=== PATIENT | female | born 1980 | race African-American/Black ===

== ENCOUNTER 2016-06-23 04:49 | Emergency (ER) | payer OTHER ==
[2016-06-23 05:48] LABS: APPEARANCE,URINE SLIGHTLY-CLOUDY; BILIRUBIN,URINE NEGATIVE (NEGATIVE); GLUCOSE, URINE NEGATIVE (NEGATIVE); KETONES,URINE TRACE mg/dL (NEGATIVE); LEUKOCYTE ESTERASE,URINE MODERATE (NEGATIVE); NITRITE,URINE NEGATIVE (NEGATIVE); PROTEIN,URINE 30 mg/dL (NEGATIVE); URINE SPECIFIC GRAVITY 1.026
--- NOTE | 2016-06-23 08:00 | ER Document Report ---
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 No fever. No flank pain. No nausea or vomiting. Associated Symptoms: None Exacerbated by: Denies Relieved by: Denies Similar symptoms previously: No Recently seen / treated by doctor: No - ROS ROS below otherwise negative: Yes Systems Reviewed and Negative: Yes All other systems reviewed and negative - REPRODUCTIVE LMP: hysterectomy Reproductive: DENIES: : - DERM Skin Color: Normal, [place] Past Medical History - General Information source: Patient - Social History Smoking Status: Current Every Day Smoker Chew tobacco use (# tins/day): No Frequency of alcohol use: None Drug Abuse: None Lives with: Family Family History: Reviewed & Not Pertinent - Past Medical History Cardiac Medical History: Reports: Hx Hypertension Renal/ Medical History: Denies: Hx Peritoneal Dialysis Past Surgical History: Reports: Hx Hysterectomy Vertical Provider Document - CONSTITUTIONAL Agree With Documented VS: Yes Exam Limitations: No Limitations - INFECTION CONTROL TRAVEL OUTSIDE OF THE [place] IN LAST 30 DAYS: No - HEENT HEENT: Conjuctival Injection, Normocephalic, PERRLA Notes: No floor seen uptake, no foreign body - NECK Neck: Supple. negative: Lymphadenopathy-Left, Lymphadenopathy-Right - RESPIRATORY Respiratory: Breath Sounds Normal, No Respiratory Distress O2 Sat by Pulse Oximetry: 98 - CARDIOVASCULAR Cardiovascular: Regular Rate, Regular Rhythm - GI/ABDOMEN Gastrointestinal: Abdomen Soft, Abdomen Non-Tender, No Organomegaly - REPRODUCTIVE Notes: There is no rash or mons pubis - BACK Back: negative: CVA Tenderness-Right, CVA Tenderness-Left - MUSCULOSKELETAL/EXTREMETIES Musculoskeletal/Extremeties: CAMILLA ACEVES - NEURO Level of Consciousness: Awake, Alert - DERM Integumentary: Warm, Dry, No Rash Course - Vital Signs Vital signs: Temp Pulse Resp BP Pulse Ox 97.8 F 77 16 146/107 H 98 06/23/16 05:02 06/23/16 05:02 06/23/16 05:02 06/23/16 05:02 06/23/16 05:02 - Laboratory Laboratory results interpreted by me: 06/23/16 05:15 Urine Protein 30 H Urine Ketones TRACE H Urine Blood SMALL H Urine Urobilinogen 4.0 H Ur Leukocyte Esterase MODERATE H Discharge - Discharge Clinical Impression: Urinary tract infection Qualifiers: Urinary tract infection type: acute cystitis Hematuria presence: without hematuria Qualified Code(s): N30.00 - Acute cystitis without hematuria Conjunctivitis, left eye Qualifiers: Conjunctivitis type: acute Acute conjunctivitis type: unspecified Qualified Code(s): H10.32 - Unspecified acute conjunctivitis, left eye Swelling of eyelid Qualifiers: Laterality: left Qualified Code(s): H02.846 - Edema of left eye, unspecified eyelid Condition: Good Disposition: HOME, SELF-CARE Instructions: Urinary Tract Infection ([facility]), Nitrofurantoin ([facility]), Conjunctivitis ([facility]) Additional Instructions: Urine culture is pending Return if her symptoms worsen See the public relations intern if eye symptoms persists Stop shaving pubic hair Please complete the patient satisfaction survey if you get one, and return it.. If you do not receive a survey, then you can go to the [facility] website, [email or web address] and place your comments about your very good care. Thank you very much. It was a pleasure being your medical provider today. Prescriptions: Nitrofurantoin/Nitrofuran Mac [Macrobid 100 mg Capsule] 100 mg PO BID #14 capsule Sulfacetamide Sodium [Bleph-10] 2 drop OS Q4H #5 ml Forms: Return to Work Referrals: LEMUEL SOLOMON MD [ACTIVE STAFF] - Follow up as needed
[2016-06-23 09:26] VITALS: BP 140/82
== END 2016-06-23 09:26 | disposition home or self-care (01) ==
LOC: ER 04:49
DX: N30.00 Acute cystitis without hematuria (principal); H10.32 Unspecified acute conjunctivitis, left eye; H02.846 Edema of left eye, unspecified eyelid; R22.0 Localized swelling, mass and lump, head; F17.200 Nicotine dependence, unspecified, uncomplicated
CPT/HCPCS: 81001; 87086; 87088; 87186; 99283

== ENCOUNTER 2016-12-04 02:02 | Emergency (ER) | payer OTHER ==
[2016-12-04] MEDS ORDERED: IPRATROPIUM/ALBUTEROL 0.5-2.5 MG/3 ML AMPUL NEB ONE (02:31)
[2016-12-04] MEDS ORDERED: PREDNISONE 20 MG TABLET PO ONE (02:31)
--- NOTE | 2016-12-04 02:42 | ER Document Report ---
ED General - General Chief Complaint: MALAISE Stated Complaint: FEELING SICK FOR A WEEK,HEADACHE,EARS HURT Time Seen by Provider: 12/04/16 02:21 Notes: Patient is a 36-year-old female that comes emergency department for chief complaint of cold symptoms for 1 week, she states she got sick from her 2-year- old friend, she states that she has had worsening pressure in her sinuses, drainage from her nose, and she has started wheezing. She has occasional cough. She denies fever. She smokes, states she hasn't been able to this week. She also reports ear pain bilaterally. She denies abdominal pain, chest pain. She has had a hysterectomy. She denies any daily medications. TRAVEL OUTSIDE OF THE [place] IN LAST 30 DAYS: No - Related Data Allergies/Adverse Reactions: shellfish derived Allergy (Verified 06/23/16 05:04) Past Medical History - General Information source: Patient - Social History Smoking Status: Current Every Day Smoker Smoking Education Provided: Yes - < 3min Frequency of alcohol use: None Drug Abuse: None Lives with: Family Family History: Reviewed & Not Pertinent Patient has suicidal ideation: No Patient has homicidal ideation: No - Past Medical History Cardiac Medical History: Reports: Hx Hypertension Renal/ Medical History: Denies: Hx Peritoneal Dialysis Past Surgical History: Reports: Hx Hysterectomy Review of Systems - Review of Systems Constitutional: No symptoms reported EENT: See HPI Cardiovascular: No symptoms reported Respiratory: See HPI Gastrointestinal: No symptoms reported Genitourinary: No symptoms reported Female Genitourinary: No symptoms reported Musculoskeletal: No symptoms reported Skin: No symptoms reported Hematologic/Lymphatic: No symptoms reported Neurological/Psychological: No symptoms reported Physical Exam - Vital signs Vitals: Temp Pulse BP Pulse Ox 97.8 F 103 H 130/92 H 98 12/04/16 02:05 12/04/16 02:05 12/04/16 02:05 12/04/16 02:05 Interpretation: Normal - General General appearance: Appears well, Alert In distress: None - HEENT Head: Normocephalic, Atraumatic Eyes: Normal Conjunctiva: Normal Eyelashes: Normal Pupils: PERRL Ears: Normal External canal: Normal Tympanic membrane: Normal Sinus: Tenderness - maxillary sinus tenderness, slightly worse on the right Mouth/Lips: Normal Mucous membranes: Normal Pharynx: Erythema - mild erythema. No: Tonsillar hypertrophy Neck: Normal. No: Anterior cervical chain, Posterior cervical chain - Respiratory Respiratory status: No respiratory distress. No: Labored, Tachypnea Chest status: Nontender Breath sounds: Wheezing - Expiratory wheezes heard in both lungs and all lung dixon, no rhonchi, no rales. No: Decreased air movement Chest palpation: Normal - Cardiovascular Rhythm: Regular. No: Tachycardia Heart sounds: Normal auscultation, S1 appreciated, S2 appreciated Murmur: No - Abdominal Inspection: Normal Distension: No distension Bowel sounds: Normal Tenderness: Nontender. No: Tender Organomegaly: No organomegaly - Back Back: Normal, Nontender - Extremities General upper extremity: Normal inspection, Nontender, Normal color, Normal ROM , Normal temperature General lower extremity: Normal inspection, Nontender, Normal color, Normal ROM , Normal temperature, Normal weight bearing. No: Shahbaz's sign - Neurological Neuro grossly intact: Yes Cognition: Normal Orientation: AAOx4 [place] Coma Scale Eye Opening: Spontaneous [place] Coma Scale Verbal: Oriented [place] Coma Scale Motor: Obeys Commands Nicola Coma Scale Total: 15 Speech: Normal Motor strength normal: LUE, RUE, LLE, RLE Sensory: Normal - Psychological Associated symptoms: Normal affect, Normal mood - Skin Skin Temperature: Warm Skin Moisture: Dry Skin Color: Normal Course - Re-evaluation Re-evalutation: Patient with exam suggestive of sinus infection and patient also has expiratory wheezes on exam. After a single DuoNeb treatments resolved, patient was given prednisone. Very low clinical suspicion of pneumonia, no fever, no productive cough, no tachypnea. Discussed smoking cessation with patient, she states that she has Aleksandr stopped for a few days, she has quit before, she understands the importance of quitting now. Treating with amoxicillin, prednisone, inhaler, discussed primary care follow-up, discussed return precautions, patient states understanding and agreement. - Vital Signs Vital signs: Temp Pulse Resp BP Pulse Ox 98.4 F 98 18 130/83 H 99 12/04/16 03:50 12/04/16 03:50 12/04/16 03:50 12/04/16 03:50 12/04/16 03:50 Discharge - Discharge Clinical Impression: Cough, Wheezing Sinusitis Qualifiers: Sinusitis location: maxillary Chronicity: acute Recurrence: non-recurrent Qualified Code(s): J01.00 - Acute maxillary sinusitis, unspecified Condition: Stable Disposition: HOME, SELF-CARE Additional Instructions: Examination is consistent with first a virus and now a sinus infection with upper respiratory symptoms and wheezing. Take the amoxicillin antibiotic as prescribed to completion. Take the prednisone as prescribed. Consider Sudafed or similar decongestant, consider nasal sprays such as Flonase or Nasacort. Stop smoking. Follow-up with primary care for additional management. Return to the emergency department for any concerning symptoms including spiking fever, difficulty breathing, or any other concerning symptoms. Prescriptions: Albuterol Sulfate [Proair HFA Inhalation Aerosol 8.5 gm MDI] 2 puff IH Q4H PRN # 1 mdi PRN Reason: Amoxicillin Trihydrate [Amoxil 875 mg Tablet] 1 tab PO BID #20 tablet Prednisone [Deltasone 10 mg Tablet] 10 mg PO ASDIR PRN #21 tablet PRN Reason: Forms: Return to Work
[2016-12-04] MEDS ORDERED: ALBUTEROL SULFATE HFA (90 MCG/PUFF) 8 GM MDI (1 MDI/ER DISP) IH ONE (03:20)
[2016-12-04 04:05] VITALS: BP 130/83
== END 2016-12-04 03:50 | disposition home or self-care (01) ==
LOC: ER 02:02
DX: J01.00 Acute maxillary sinusitis, unspecified (principal); R05 Cough; R06.2 Wheezing; H92.02 Otalgia, left ear; I10 Essential (primary) hypertension; F17.200 Nicotine dependence, unspecified, uncomplicated; Z71.6 Tobacco abuse counseling; Z91.013 Allergy to seafood
CPT/HCPCS: 94640; 99283; J7512; J3490; J7620

== ENCOUNTER 2016-12-18 12:05 | Emergency (ER) | payer OTHER ==
[2016-12-18 12:10] VITALS: BP 126/92
--- NOTE | 2016-12-18 13:26 | ER Document Report ---
HPI - HPI Pain Level: Denies Notes: Patient is a 36-year-old female who presents the ED complaining of a rash 1 week. Patient states that the rash started around her waistline and has started to spread towards her chest and there is a few spots on her right arm. Patient states that the rash is very itchy and is worse at nighttime. She denies any new chemicals, exposure new soaps or detergents, denies insect bites. Denies any recent travel, illness. She has not noticed any redness or purulent discharge. Denies any red streaks. Patient denies any drug allergies or significant past medical history otherwise. Denies any headache, fever, neck pain, URI, sore throat, chest pain, palpitations, syncope, cough, shortness of breath, wheeze, dyspnea, abdominal pain, nausea/vomiting/diarrhea. - ROS Notes: REVIEW OF SYSTEMS: CONSTITUTIONAL : Denies fever, chills, or sweats. Denies recent illness. EENT: Denies eye, ear, throat, or mouth pain or symptoms. Denies nasal or sinus congestion or discharge. Denies throat, tongue, or mouth swelling or difficulty swallowing. CARDIOVASCULAR: Denies chest pain. Denies palpitations or racing or irregular heart beat. Denies ankle edema. RESPIRATORY: Denies cough, cold, or chest congestion. Denies shortness of breath, difficulty breathing, or wheezing. GASTROINTESTINAL: Denies abdominal pain or distention. Denies nausea, vomiting , or diarrhea. Denies blood in vomitus, stools, or per rectum. Denies black, tarry stools. Denies constipation. GENITOURINARY: Denies difficulty urinating, painful urination, burning, frequency, blood in urine, or discharge. MUSCULOSKELETAL: Denies back or neck pain or stiffness. Denies joint pain or swelling. SKIN: see hpi NEUROLOGICAL: Denies confusion or altered mental status. Denies passing out or loss of consciousness. Denies dizziness or lightheadedness. Denies headache. Denies weakness or paralysis or loss of use of either side. Denies problems with gait or speech. Denies sensory loss, numbness, or tingling. ALL OTHER SYSTEMS REVIEWED AND NEGATIVE. Dictation was performed using [employer] voice recognition software - REPRODUCTIVE Reproductive: DENIES: : Past Medical History - Social History Smoking Status: Current Some Day Smoker Chew tobacco use (# tins/day): No Frequency of alcohol use: None Drug Abuse: None Family History: Reviewed & Not Pertinent - Past Medical History Cardiac Medical History: Reports: Hx Hypertension Renal/ Medical History: Denies: Hx Peritoneal Dialysis Past Surgical History: Reports: Hx Hysterectomy Vertical Provider Document - CONSTITUTIONAL Agree With Documented VS: Yes Notes: PHYSICAL EXAMINATION: GENERAL: Well-appearing, well-nourished and in no acute distress. LUNGS: Breath sounds clear to auscultation bilaterally and equal. No wheezes rales or rhonchi. HEART: Regular rate and rhythm without murmurs, rubs, gallops. ABDOMEN: Soft, nontender, nondistended abdomen. No guarding, no rebound. No masses appreciated. Normal bowel sounds present. No CVA tenderness bilaterally. Musculoskeletal: FROM to passive/active. Strength 5+/5. Extremities: No cyanosis, clubbing, or edema b/l. Peripheral pulses 2+. Capillary refill less than 3 seconds. NEUROLOGICAL: Cranial nerves grossly intact. Normal speech, normal gait. Normal sensory, motor exams PSYCH: Normal mood, normal affect. SKIN: small maculopapular lesions with borrows noted on a few. Non-tender. No erythema, abscess, streaks, or discharge. - INFECTION CONTROL TRAVEL OUTSIDE OF THE [place] IN LAST 30 DAYS: No - RESPIRATORY O2 Sat by Pulse Oximetry: 99 Course - Re-evaluation Re-evalutation: 12/18/16 13:25 Patient is an afebrile, well-hydrated, 36-year-old female who presents the ED with suspected scabies based on H&P today. Vitals are stable. PE otherwise unremarkable. I will send her home with a prescription for permethrin cream to use as directed. Scabies precautions reviewed. Low suspicion/risk for any emergent systemic condition at this time. Recheck with your PCM in 2-3 days. Return to the ED with any worsening/concerning symptoms otherwise as reviewed discharge. Conservative measures for symptoms otherwise. Patient is in agreement. - Vital Signs Vital signs: Temp Pulse Resp BP Pulse Ox 98.2 F 105 H 17 126/92 H 99 12/18/16 12:08 12/18/16 12:08 12/18/16 12:08 12/18/16 12:08 12/18/16 12:08 Discharge - Discharge Clinical Impression: Scabies Condition: Stable Disposition: HOME, SELF-CARE Instructions: Scabies ([facility]) Additional Instructions: Scabies instructions as reviewed Use cream as directed Keep the skin clean and dry otherwise You may use Benadryl and/or cortisone to help with itching Recheck with your PCM in 2-3 days Consider consult with dermatology Return to the ED with any worsening symptoms and/or development of fever, headache, chest pain, palpitations, syncope, shortness of breath, trouble breathing, abdominal pain, n/v/d, blood in stool/urine, abscess, red streaks, discharge, or other worsening symptoms that are concerning to you. Prescriptions: Permethrin [Elimite] 60 gm TP ONCE PRN #1 cream..g. PRN Reason: Forms: Elevated Blood Pressure, Smoking Cessation Education Referrals: LAURA JONES DO [ACTIVE STAFF] - Follow up as needed
== END 2016-12-18 13:35 | disposition home or self-care (01) ==
LOC: ER 12:05
DX: B86 Scabies (principal); F17.200 Nicotine dependence, unspecified, uncomplicated; I10 Essential (primary) hypertension
CPT/HCPCS: 99282

== ENCOUNTER 2017-03-23 06:55 | Emergency (ER) | payer OTHER ==
[2017-03-23] MEDS ORDERED: ONDANSETRON 4 MG TAB.RAPDIS PO ONE (07:46)
--- NOTE | 2017-03-23 07:46 | ER Document Report ---
ED GI/ - General Chief Complaint: Flank Pain Stated Complaint: LOWER BACK SIDE PRESSURE Time Seen by Provider: 03/23/17 07:45 Mode of Arrival: Ambulatory Information source: Patient Notes: 37 yo female with suprapubic discomfort and urinary urgency. No dysurica, flank pain or fever. TRAVEL OUTSIDE OF THE [place] IN LAST 30 DAYS: No - Related Data Allergies/Adverse Reactions: shellfish derived Allergy (Verified 03/23/17 07:39) Past Medical History - General Information source: Patient - Social History Smoking Status: Never Smoker Frequency of alcohol use: None Drug Abuse: None Lives with: Spouse/Significant other Family History: Reviewed & Not Pertinent Patient has suicidal ideation: No Patient has homicidal ideation: No - Past Medical History Cardiac Medical History: Reports: Hx Hypertension Renal/ Medical History: Denies: Hx Peritoneal Dialysis Past Surgical History: Reports: Hx Hysterectomy Review of Systems - Review of Systems Constitutional: No symptoms reported EENT: No symptoms reported Cardiovascular: No symptoms reported Respiratory: No symptoms reported Gastrointestinal: No symptoms reported Genitourinary: No symptoms reported Female Genitourinary: See HPI Musculoskeletal: No symptoms reported Skin: No symptoms reported Hematologic/Lymphatic: No symptoms reported Neurological/Psychological: No symptoms reported Physical Exam - Vital signs Vitals: Temp Pulse Resp BP Pulse Ox 97.4 F 72 18 132/100 H 100 03/23/17 06:57 03/23/17 06:57 03/23/17 06:57 03/23/17 06:57 03/23/17 06:57 Interpretation: Normal - General General appearance: Appears well, Alert - HEENT Head: Normocephalic, Atraumatic Eyes: Normal Pupils: PERRL - Respiratory Respiratory status: No respiratory distress Chest status: Nontender Breath sounds: Normal Chest palpation: Normal - Cardiovascular Rhythm: Regular Heart sounds: Normal auscultation Murmur: No - Abdominal Inspection: Normal Distension: No distension Bowel sounds: Normal Tenderness: Nontender Organomegaly: No organomegaly - Back Back: Normal, Nontender. No: CVA tenderness - Extremities General upper extremity: Normal inspection, Nontender, Normal color, Normal ROM , Normal temperature General lower extremity: Normal inspection, Nontender, Normal color, Normal ROM , Normal temperature, Normal weight bearing. No: Shahbaz's sign - Neurological Neuro grossly intact: Yes Cognition: Normal Orientation: AAOx4 [place] Coma Scale Eye Opening: Spontaneous [place] Coma Scale Verbal: Oriented [place]ola Coma Scale Motor: Obeys Commands [place] Coma Scale Total: 15 Speech: Normal Motor strength normal: LUE, RUE, LLE, RLE Sensory: Normal - Psychological Associated symptoms: Normal affect, Normal mood - Skin Skin Temperature: Warm Skin Moisture: Dry Skin Color: Normal Course - Vital Signs Vital signs: Temp Pulse Resp BP Pulse Ox 97.9 F 59 L 16 119/64 99 03/23/17 09:26 03/23/17 09:26 03/23/17 09:26 03/23/17 09:26 03/23/17 09:26 - Laboratory Laboratory results interpreted by me: 03/23/17 07:35 Urine Blood SMALL H Discharge - Discharge Clinical Impression: Urinary tract infection Qualifiers: Urinary tract infection type: site unspecified Hematuria presence: without hematuria Qualified Code(s): N39.0 - Urinary tract infection, site not specified Condition: Good Disposition: HOME, SELF-CARE Instructions: Cephalexin ([facility]), Urinary Tract Infection ([facility]) Additional Instructions: Urine culture is pending Drink plenty of fluids today Return to the emergency room for worsening symptoms Prescriptions: Cephalexin Monohydrate [Keflex 500 mg Capsule] 500 mg PO QID #28 capsule Forms: Return to Work
[2017-03-23 07:54] LABS: APPEARANCE,URINE SLIGHTLY-CLOUDY; BILIRUBIN,URINE NEGATIVE (NEGATIVE); GLUCOSE, URINE NEGATIVE (NEGATIVE); KETONES,URINE NEGATIVE (NEGATIVE); LEUKOCYTE ESTERASE,URINE NEGATIVE (NEGATIVE); NITRITE,URINE NEGATIVE (NEGATIVE); PROTEIN,URINE NEGATIVE (NEGATIVE); URINE SPECIFIC GRAVITY 1.029; UROBILINOGEN,URINE NEGATIVE mg/dL (<2.0)
[2017-03-23 09:32] VITALS: BP 119/64
[2017-03-23] MEDS ORDERED: CEPHALEXIN 500 MG CAPSULE PO ONE (09:49)
== END 2017-03-23 10:40 | disposition home or self-care (01) ==
LOC: ER 06:55
DX: N39.0 Urinary tract infection, site not specified (principal); I10 Essential (primary) hypertension
CPT/HCPCS: 99284; 87086; 87088; 81001; 87186; S0119

== ENCOUNTER 2017-06-22 11:45 | Emergency (ER) | payer SELFPAY ==
--- NOTE | 2017-06-22 12:40 | ER Document Report ---
ED Medical Screen (RME) - General Chief Complaint: Chest Pain Stated Complaint: ARM NUMBNESS Time Seen by Provider: 06/22/17 12:31 Notes: RME DISCLOSURE I have seen this patient as part of a Rapid Medical Evaluation and, if applicable, placed any initially appropriate orders. The patient will be seen and fully evaluated, including a full history and physical exam, by a provider ( in Main ED or Fast Track) when a room becomes available. 37-year-old female here with several days of left-sided chest pain nonradiating as well as left arm numbness and some shortness of breath and nausea. Symptoms worse with exertion and moving left arm around. Symptoms improved with holding her arm close to her chest and not moving it. Has not taken anything for the symptoms. TRAVEL OUTSIDE OF THE [place] IN LAST 30 DAYS: No - Related Data Allergies/Adverse Reactions: shellfish derived Allergy (Verified 06/22/17 11:49) Past Medical History - Social History Chew tobacco use (# tins/day): No Frequency of alcohol use: None Drug Abuse: None - Past Medical History Cardiac Medical History: Reports: Hx Hypertension Renal/ Medical History: Denies: Hx Peritoneal Dialysis Past Surgical History: Reports: Hx Hysterectomy Physical Exam - Vital signs Vitals: Temp Pulse Resp BP Pulse Ox 98.1 F 70 16 129/98 H 100 06/22/17 12:02 06/22/17 12:02 06/22/17 12:02 06/22/17 12:02 06/22/17 12:02 Course - Vital Signs Vital signs: Temp Pulse Resp BP Pulse Ox 98.1 F 70 16 129/98 H 100 06/22/17 12:02 06/22/17 12:02 06/22/17 12:02 06/22/17 12:02 06/22/17 12:02
--- NOTE | 2017-06-22 13:10 | RADIOLOGY REPORT (SQ) ---
EXAM DESCRIPTION: CHEST PA/LAT COMPLETED DATE/TIME: 06/22/2017 12:56 pm REASON FOR STUDY: CP SOB COMPARISON: None. EXAM PARAMETERS: NUMBER OF VIEWS: two views TECHNIQUE: Digital Frontal and Lateral radiographic views of the chest acquired. RADIATION DOSE: NA LIMITATIONS: none FINDINGS: LUNGS AND PLEURA: No opacities, masses or pneumothorax. No pleural effusion. MEDIASTINUM AND HILAR STRUCTURES: No masses or contour abnormalities. HEART AND VASCULAR STRUCTURES: Heart normal size. No evidence for failure. BONES: No acute findings. HARDWARE: None in the chest. OTHER: No other significant finding. IMPRESSION: NO SIGNIFICANT RADIOGRAPHIC FINDING IN THE CHEST. TECHNICAL DOCUMENTATION: JOB ID: [id number] [employer]- All Rights Reserved Reading location - IP/workstation name: [email or web address] DANIEL
--- NOTE | 2017-06-22 13:26 | EKG REPORT ---
SEVERITY:- BORDERLINE ECG - SINUS RHYTHM PROBABLE LEFT ATRIAL ABNORMALITY : Confirmed by: Jose Alberto Claire MD 22-Jun-2017 13:25:04
[2017-06-22 13:33] LABS: ABSOLUTE EOSINOPHILS # (AUTO) 0.1 10^3/uL (0.0-0.6); ABSOLUTE LYMPHOCYTES (AUTO) 1.5 10^3/uL (0.5-4.7); ABSOLUTE MONOCYTES (AUTO) 0.2 10^3/uL (0.1-1.4); ABSOLUTE NEUT (AUTO) 4.6 10^3/uL (1.7-8.2); BASOPHILS % (AUTO) 0.7 % (0-2); EOSINOPHILS % (AUTO) 1.3 % (0-6); HEMATOCRIT 42.5 % (36.0-47.0); HEMOGLOBIN 14.3 g/dL (12.0-15.5); LYMPHOCYTES % (AUTO) 22.8 % (13-45); MEAN CORPUSCULAR HEMOGLOBIN 29.5 pg (27.0-33.4); MEAN CORPUSCULAR HGB CONC 33.8 g/dL (32.0-36.0); MEAN CORPUSCULAR VOLUME 87 fl (80-97); MONOCYTES % (AUTO) 3.8 % (3-13); PLATELET COUNT 253 10^3/uL (150-450); RED BLOOD COUNT 4.86 10^6/uL (3.72-5.28); RED CELL DISTRIBUTION WIDTH 13.8 % (11.5-14.0); SEGMENTED NEUTROPHILS % (AUTO) 71.4 % (42-78); TOTAL CELLS COUNTED % (AUTO) 100 %; WHITE BLOOD COUNT 6.5 10^3/uL (4.0-10.5)
[2017-06-22 13:52] LABS: ALANINE AMINOTRANSFERASE 26 U/L (9-52); ALBUMIN 4.5 g/dL (3.5-5.0); ALKALINE PHOSPHATASE 72 U/L (38-126); ANION GAP 8 (5-19); ASPARTATE AMINO TRANSFERASE 23 U/L (14-36); BILIRUBIN,DIRECT 0.2 mg/dL (0.0-0.4); BILIRUBIN,TOTAL 0.2 mg/dL (0.2-1.3); BLOOD UREA NITROGEN 11 mg/dL (7-20); CALCIUM 10.1 mg/dL (8.4-10.2); CARBON DIOXIDE 24 mmol/L (22-30); CHLORIDE 106 mmol/L (98-107); GLUCOSE 74 mg/dL (75-110); POTASSIUM 4.7 mmol/L (3.6-5.0); SODIUM 137.7 mmol/L (137-145); TOTAL PROTEIN 7.5 g/dL (6.3-8.2)
--- NOTE | 2017-06-22 16:28 | ER Document Report ---
ED General - General Mode of Arrival: Ambulatory Information source: Patient TRAVEL OUTSIDE OF THE [place] IN LAST 30 DAYS: No <JOSELUIS SUMMERS - Last Filed: 06/22/17 17:20> <HANNA WASHINGTON - Last Filed: 06/28/17 07:03> - General Chief Complaint: Chest Pain Stated Complaint: ARM NUMBNESS Time Seen by Provider: 06/22/17 12:31 Notes: Patient is a 37-year-old female who presents to the emergency department today with complaints of left sided chest pressure for the last 3 days. Patient describes this pain as a "locking up" sensation but she is unable to further elaborate on this pain. Patient mentions that the pain is positional, certain positions exacerbate her pain and other positions seem to relieve her pain. Patient states that she feels like her left arm is numb as well at times. Patient denies any trauma. Patient denies a history of coronary artery disease or family history of coronary artery disease/early age MS. (JOSELUIS SUMMERS) - Related Data Allergies/Adverse Reactions: shellfish derived Allergy (Verified 06/22/17 11:49) Past Medical History - General Information source: Patient - Social History Smoking Status: Current Some Day Smoker Cigarette use (# per day): No - states she isnt smoking cigarettes now, smoking black&milds currently Chew tobacco use (# tins/day): No Frequency of alcohol use: None Drug Abuse: None Lives with: Family Family History: Reviewed & Not Pertinent Patient has suicidal ideation: No Patient has homicidal ideation: No - Past Medical History Cardiac Medical History: Reports: Hx Hypertension Past Surgical History: Reports: Hx Hysterectomy <JOSELUIS SUMMERS - Last Filed: 06/22/17 17:20> Review of Systems - Review of Systems Constitutional: No symptoms reported EENT: No symptoms reported Cardiovascular: See HPI, Chest pain Respiratory: No symptoms reported Gastrointestinal: No symptoms reported Genitourinary: No symptoms reported Female Genitourinary: No symptoms reported Musculoskeletal: See HPI, Other - left arm numbness Skin: No symptoms reported Hematologic/Lymphatic: No symptoms reported Neurological/Psychological: No symptoms reported -: Yes All other systems reviewed and negative <JOSELUIS SUMMERS - Last Filed: 06/22/17 17:20> Physical Exam <JOSELUIS SUMMERS - Last Filed: 03/27/18 17:20> <HANNA WASHINGTON - Last Filed: 06/28/17 07:03> - Vital signs Vitals: Temp Pulse Resp BP Pulse Ox 98.1 F 70 16 129/98 H 100 06/22/17 12:02 06/22/17 12:02 06/22/17 12:02 06/22/17 12:02 06/22/17 12:02 - Notes Notes: Physical Exam: General: Alert, appears well. HEENT: Normocephalic. Atraumatic. PERRL. Extraocular movements intact. Oropharynx clear. Neck: Supple. Non-tender. Respiratory: No respiratory distress. Left anterior chest wall tenderness with palpation, reproduces pain. Clear and equal breath sounds bilaterally. Cardiovascular: Regular rate and rhythm. Abdominal: Normal Inspection. Non-tender. No distension. Normal Bowel Sounds. Back: Non-tender. No deformity or step off. Extremities: Moves all four extremities. Upper extremities: Left anterior shoulder tenderness with palpation. Pain with range of motion of left shoulder which reproduces pain. Lower extremities: Normal inspection. No edema. Normal ROM. Neurological: Normal cognition. AAOx4. Normal speech. Psychological: Normal affect. Normal Mood. Skin: Warm. Dry. Normal color. (JOSELUIS SUMMERS) Course - Laboratory Result Diagrams: 06/22/17 13:10 06/22/17 13:10 <JOSELUIS SUMMERS - Last Filed: 06/22/17 17:20> - Laboratory Result Diagrams: 06/22/17 13:10 06/22/17 13:10 - EKG Interpretation by De EKG shows normal: Sinus rhythm Rate: Normal Rhythm: NSR <HANNA WASHINGTON - Last Filed: 06/28/17 07:03> - Re-evaluation Re-evalutation: 06/22/17 16:30 Patient well-appearing in no acute distress with reproducible pain to palpation of upper left chest wall with no evidence of rashes or induration or signs of infection. Patient also has pain with shoulder movement. No known cause traumas or falls. Patient signs and symptoms consistent with muscular skeletal strain of unknown origin. Will treat with naproxen for 5 days and then as needed thereafter. If symptoms are not getting better after 1 week she is to follow-up with her family medicine physician. All labs within normal limits with normal troponin. Pain is been on and off for 3 days and became continuous yesterday. Only 1 troponin is necessary. EKG shows no concerning findings. ( HANNA WASHINGTON) - Vital Signs Vital signs: Temp Pulse Resp BP Pulse Ox 97.7 F 60 16 138/90 H 100 06/22/17 16:47 06/22/17 16:47 06/22/17 12:03 06/22/17 16:47 06/22/17 16:47 - Laboratory Laboratory results interpreted by me: 06/22/17 13:10 Glucose 74 L Discharge <JOSELUIS SUMMERS - Last Filed: 06/22/17 17:20> <HANNA WASHINGTON - Last Filed: 06/28/17 07:03> - Discharge Clinical Impression: Anterior chest wall pain Left shoulder strain Qualifiers: Encounter type: initial encounter Qualified Code(s): S46.912A - Strain of unspecified muscle, fascia and tendon at shoulder and upper arm level, left arm , initial encounter Disposition: HOME, SELF-CARE Instructions: Chest Wall Pain ([facility]), Exercise Program for the Shoulder ([facility]) Additional Instructions: Please take medications as prescribed and follow-up with your primary care physician in 1 week if symptoms are not improving. Prescriptions: Naproxen 500 mg PO BID #30 tablet Forms: Return to Work Referrals: [facility] [Provider Group] - Follow up as needed Scribe Attestation: 06/28/17 07:03 I personally performed the services described in the documentation, reviewed and edited the documentation which was dictated to the scribe in my presence, and it accurately records my words and actions. (HANNA WASHINGTON) Scribe Documentation - Scribe Written by Alex:: Alex Perez, 06/22/2017 1722 acting as scribe for :: Eddi <JOSELUIS SUMMERS - Last Filed: 06/22/17 17:20>
[2017-06-22 16:49] VITALS: BP 138/90
== END 2017-06-22 16:49 | disposition home or self-care (01) ==
LOC: ER 11:45
DX: R07.89 Other chest pain (principal); S46.912A Strain of unspecified muscle, fascia and tendon at shoulder and upper arm level, left arm, initial encounter; X58.XXXA Exposure to other specified factors, initial encounter; I10 Essential (primary) hypertension; R20.0 Anesthesia of skin; F17.290 Nicotine dependence, other tobacco product, uncomplicated; Z91.013 Allergy to seafood
CPT/HCPCS: 36415; 71046; 80053; 84484; 85025; 93005; 93010; 99285

== ENCOUNTER 2017-06-28 09:49 | Emergency (ER) | payer SELFPAY ==
[2017-06-28] MEDS ORDERED: IBUPROFEN 800 MG TABLET PO ONE (10:07)
[2017-06-28] MEDS ORDERED: LIDOCAINE 5% (700 MG) TRANSDERMAL ADH..PATCH TP ONE (10:07)
[2017-06-28 10:26] LABS: ABSOLUTE BASOPHILS # (AUTO) 0.1 10^3/uL (0.0-0.2); ABSOLUTE LYMPHOCYTES (AUTO) 1.3 10^3/uL (0.5-4.7); ABSOLUTE MONOCYTES (AUTO) 0.2 10^3/uL (0.1-1.4); ABSOLUTE NEUT (AUTO) 5.7 10^3/uL (1.7-8.2); BASOPHILS % (AUTO) 0.8 % (0-2); EOSINOPHILS % (AUTO) 0.6 % (0-6); HEMATOCRIT 42.5 % (36.0-47.0); HEMOGLOBIN 14.4 g/dL (12.0-15.5); LYMPHOCYTES % (AUTO) 17.4 % (13-45); MEAN CORPUSCULAR HEMOGLOBIN 29.6 pg (27.0-33.4); MEAN CORPUSCULAR HGB CONC 33.8 g/dL (32.0-36.0); MEAN CORPUSCULAR VOLUME 88 fl (80-97); MONOCYTES % (AUTO) 3.3 % (3-13); PLATELET COUNT 244 10^3/uL (150-450); RED BLOOD COUNT 4.85 10^6/uL (3.72-5.28); RED CELL DISTRIBUTION WIDTH 13.5 % (11.5-14.0); SEGMENTED NEUTROPHILS % (AUTO) 77.9 % (42-78); TOTAL CELLS COUNTED % (AUTO) 100 %; WHITE BLOOD COUNT 7.3 10^3/uL (4.0-10.5)
--- NOTE | 2017-06-28 10:33 | RADIOLOGY REPORT (SQ) ---
EXAM DESCRIPTION: CHEST PA/LAT COMPLETED DATE/TIME: 06/28/2017 10:23 am REASON FOR STUDY: cp left arm pain COMPARISON: 06/22/2017 EXAM PARAMETERS: NUMBER OF VIEWS: two views TECHNIQUE: Digital Frontal and Lateral radiographic views of the chest acquired. RADIATION DOSE: NA LIMITATIONS: none FINDINGS: LUNGS AND PLEURA: No opacities, masses or pneumothorax. No pleural effusion. MEDIASTINUM AND HILAR STRUCTURES: No masses or contour abnormalities. HEART AND VASCULAR STRUCTURES: Heart normal size. No evidence for failure. BONES: No acute findings. HARDWARE: None in the chest. OTHER: No other significant finding. IMPRESSION: NO SIGNIFICANT RADIOGRAPHIC FINDING IN THE CHEST. TECHNICAL DOCUMENTATION: JOB ID: [id number] [employer]- All Rights Reserved Reading location - IP/workstation name: [email or web address]
--- NOTE | 2017-06-28 10:34 | RADIOLOGY REPORT (SQ) ---
EXAM DESCRIPTION: CERV SP 3 VIEW OR LESS COMPLETED DATE/TIME: 06/28/2017 10:23 am REASON FOR STUDY: cp Pain COMPARISON: None. NUMBER OF VIEWS: Three views. TECHNIQUE: AP, lateral and odontoid radiographic images acquired of the cervical spine. LIMITATIONS: None. FINDINGS: MINERALIZATION: Normal. ALIGNMENT: Anatomic. VERTEBRAE: Vertebral bodies of normal height. DISCS: Disc space loss of height with mild anterior and posterior osteophyte formation at C3-4, C4-5, C5-6. HARDWARE: None in the spine. SOFT TISSUES: No masses or calcifications. Lung apices clear. OTHER: No other significant finding. IMPRESSION: Multilevel degenerative disc changes. No plain film evidence of acute fracture or malal ignment TECHNICAL DOCUMENTATION: JOB ID: [id number] [employer]- All Rights Reserved Reading location - IP/workstation name: [email or web address]
--- NOTE | 2017-06-28 10:34 | ER Document Report ---
ED General - General Chief Complaint: Chest Pain Stated Complaint: CHEST PAIN TRAVEL OUTSIDE OF THE [place] IN LAST 30 DAYS: No - HPI Patient complains to provider of: Left upper chest pain left shoulder pain Notes: Patient coming in for evaluation of left upper chest pain left shoulder pain. Patient was seen approximate 5 days ago for similar incidences. Patient states pain has been intermittent. Pain is worse with movement. Denies any recent travel denies any shortness of breath. Patient states pain is definitely increased when she tries to move her left arm intermittent numbness whenever the pain occurs. Patient denies any trauma or overuse of the left shoulder. - Related Data Allergies/Adverse Reactions: shellfish derived Allergy (Verified 06/28/17 09:51) Past Medical History - Social History Smoking Status: Current Every Day Smoker Chew tobacco use (# tins/day): No Frequency of alcohol use: None Drug Abuse: None Family History: Reviewed & Not Pertinent Patient has suicidal ideation: No Patient has homicidal ideation: No - Past Medical History Cardiac Medical History: Reports: Hx Hypertension Renal/ Medical History: Denies: Hx Peritoneal Dialysis Past Surgical History: Reports: Hx Hysterectomy Review of Systems - Review of Systems Constitutional: No symptoms reported EENT: No symptoms reported Cardiovascular: Chest pain - Left shoulder pain Respiratory: No symptoms reported Gastrointestinal: No symptoms reported Genitourinary: No symptoms reported Female Genitourinary: No symptoms reported Musculoskeletal: No symptoms reported Skin: No symptoms reported Hematologic/Lymphatic: No symptoms reported Neurological/Psychological: No symptoms reported -: Yes All other systems reviewed and negative Physical Exam - Vital signs Vitals: Temp Pulse Resp BP Pulse Ox 97.9 F 62 18 115/75 100 06/28/17 10:01 06/28/17 10:01 06/28/17 10:01 06/28/17 10:01 06/28/17 10:01 Interpretation: Normal - General General appearance: Appears well, Alert - HEENT Head: Normocephalic, Atraumatic Eyes: Normal Pupils: PERRL - Respiratory Respiratory status: No respiratory distress Chest status: Tender, Other - Pain is reproduced the patient when I palpate the coracoid process of the incision site of the pectoralis muscles also with movement of the left shoulder internal/external rotation elevation of the shoulder reproduces the pain in the chest and in the shoulder. Patient also has pain to palpation of the upper supraspinatus muscles and lateral trapezius muscles. No midline neck tenderness. Breath sounds: Normal Chest palpation: Normal - Cardiovascular Rhythm: Regular Heart sounds: Normal auscultation Murmur: No - Abdominal Inspection: Normal Distension: No distension Bowel sounds: Normal Tenderness: Nontender Organomegaly: No organomegaly - Back Back: Normal, Nontender - Extremities General upper extremity: Normal inspection, Tender - Please see chest examination for left shoulder. Otherwise normal examination of the upper extremities., Normal color, Normal ROM, Normal temperature General lower extremity: Normal inspection, Nontender, Normal color, Normal ROM , Normal temperature, Normal weight bearing. No: Shahbaz's sign - Neurological Neuro grossly intact: Yes Cognition: Normal Orientation: AAOx4 [place] Coma Scale Eye Opening: Spontaneous [place] Coma Scale Verbal: Oriented [place] Coma Scale Motor: Obeys Commands [place] Coma Scale Total: 15 Speech: Normal Motor strength normal: LUE, RUE, LLE, RLE Sensory: Normal - Psychological Associated symptoms: Normal affect, Normal mood - Skin Skin Temperature: Warm Skin Moisture: Dry Skin Color: Normal Course - Re-evaluation Re-evalutation: 06/28/17 10:33 Patient more likely has a PIC muscle strain muscle skeletal etiology of left shoulder and chest wall pain. Will perform basic lab work so we will get x- rays of the neck and chest. If no critical etiology is ruled out by laboratory studies EKG and x-rays no signs of infection will likely my assessment and plan will be to treat the patient for a pectoralis muscle strain and discharge patient home. 06/28/17 10:58 The patient has atypical chest pain as the patient's chest pain is not suggestive of pulmonary embolus, cardiac ischemia, aortic dissection, or other serious etiology. Given the extremely low risk of these diagnoses further testing and evaluation for these possibilities does not appear to be indicated at this time. The patient has been instructed to return if the symptoms worsen or change in any way. X-ray does show some arthritic changes in the cervical spine will prescribe Ultram for pain control Motrin as well. Patient was discharged home. - Vital Signs Vital signs: Temp Pulse Resp BP Pulse Ox 97.9 F 62 18 115/75 100 06/28/17 10:01 06/28/17 10:01 06/28/17 10:01 06/28/17 10:01 04/02/18 10:01 - Laboratory Result Diagrams: 06/28/17 10:12 06/28/17 10:12 Discharge - Discharge Clinical Impression: Chest wall pain, Cervical arthritis Pectoralis muscle strain Qualifiers: Encounter type: initial encounter Qualified Code(s): S29.011A - Strain of muscle and tendon of front wall of thorax, initial encounter Instructions: Oral Narcotic Medication ([facility]), Chest Wall Pain ([facility]), Anti- Inflammatory Medication ([facility]), Arthritis ([facility]), Muscle Strain ([facility]) Additional Instructions: Your laboratory studies not show any signs of cardiac abnormality or pulmonary abnormality. Your lungs chest x-ray looks fine. The x-ray of her neck that showed some changes consistent with some arthritis. This may explain some of the left arm pain. Your examination is consistent with a pectoralis muscle strain. This may continues to hurt intermittently for the next 1-[address] warm packs ice packs rest the left shoulder. He may take the Ultram for severe pain otherwise I would recommend taking Tylenol and Motrin. Follow-up with PCP or clinics provided. Return to the ER if symptoms worsen. Prescriptions: Ibuprofen [Motrin 600 Mg Tablet] 600 mg PO TID #30 tablet Tramadol HCl [Ultram 50 mg Tablet] 50 mg PO ASDIR PRN #20 tablet PRN Reason: Forms: Return to Work
[2017-06-28 10:45] LABS: ANION GAP 9 (5-19); BLOOD UREA NITROGEN 11 mg/dL (7-20); CALCIUM 9.9 mg/dL (8.4-10.2); CARBON DIOXIDE 24 mmol/L (22-30); CHLORIDE 106 mmol/L (98-107); CREATINE KINASE 86 U/L (30-135); GLUCOSE 84 mg/dL (75-110); POTASSIUM 4.3 mmol/L (3.6-5.0); SODIUM 139.3 mmol/L (137-145)
[2017-06-28 11:17] VITALS: BP 137/91
--- NOTE | 2017-06-28 19:19 | EKG REPORT ---
SEVERITY:- NORMAL ECG - SINUS RHYTHM : Confirmed by: Claudia Aldridge 28-Jun-2017 19:19:22
== END 2017-06-28 11:12 | disposition home or self-care (01) ==
LOC: ER 09:49
DX: S29.011A Strain of muscle and tendon of front wall of thorax, initial encounter (principal); X58.XXXA Exposure to other specified factors, initial encounter; R07.89 Other chest pain; M47.9 Spondylosis, unspecified; M25.512 Pain in left shoulder; R20.0 Anesthesia of skin; I10 Essential (primary) hypertension; F17.200 Nicotine dependence, unspecified, uncomplicated; Z91.013 Allergy to seafood
CPT/HCPCS: 36415; 71046; 72040; 80048; 82550; 84484; 84703; 85025; 93005; 93010; 99285

== ENCOUNTER 2017-12-25 10:10 | Emergency (ER) | payer SELFPAY ==
--- NOTE | 2017-12-25 10:32 | ER Document Report ---
ED Extremity Problem, Lower - General Chief Complaint: Toe Injury Stated Complaint: TOE PAIN Time Seen by Provider: 12/25/17 10:19 Mode of Arrival: Ambulatory Information source: Patient Notes: Patient is a 37-year-old female comes emergency room with a complaint of right great toe pain and numbness on the bottom of the foot into the first 3 toes. Denies any known injuries. Pain on the great toes been going on for "a while" and the bottom of the foot pain is been going on for the last 3-4 days. TRAVEL OUTSIDE OF THE [place] IN LAST 30 DAYS: No - HPI Patient complains to provider of: Altered sensation, Pain. No: Injury Location: Foot, Great Toe, 2nd Toe, 3rd Toe Occurred: Other - Toes for numbness last 3 or 4 days and the great toe lesion for a while Where: Home Onset/Duration: Gradual, Worse Quality of pain: Fullness, Pressure, Throbbing Severity: Moderate Pain Level: 3 Recent injury: No Exacerbated by: Movement, Walking Relieved by: Elevation, Rest - Related Data Allergies/Adverse Reactions: shellfish derived Allergy (Verified 12/25/17 10:12) Past Medical History - General Information source: Patient - Social History Smoking Status: Current Every Day Smoker Cigarette use (# per day): Yes - Half-pack a day Chew tobacco use (# tins/day): No Smoking Education Provided: Yes Frequency of alcohol use: Rare Drug Abuse: None Lives with: Family Family History: Reviewed & Not Pertinent - Past Medical History Cardiac Medical History: Reports: Hx Hypertension Renal/ Medical History: Denies: Hx Peritoneal Dialysis Past Surgical History: Reports: Hx Hysterectomy Review of Systems - Review of Systems Constitutional: No symptoms reported EENT: No symptoms reported Cardiovascular: No symptoms reported Respiratory: No symptoms reported Gastrointestinal: No symptoms reported Genitourinary: No symptoms reported Female Genitourinary: No symptoms reported Musculoskeletal: Joint pain Skin: Lesions Hematologic/Lymphatic: No symptoms reported Neurological/Psychological: No symptoms reported Physical Exam - Vital signs Vitals: Temp Pulse Resp BP Pulse Ox 97.7 F 75 14 137/99 H 100 12/25/17 10:15 12/25/17 10:15 12/25/17 10:15 12/25/17 10:15 12/25/17 10:15 Interpretation: Hypertensive - Notes Notes: Patient is a well-nourished well-developed female 37 years of age in no apparent distress. - General General appearance: Appears well In distress: None - HEENT Head: Normocephalic, Atraumatic Eyes: Normal - Respiratory Respiratory status: No respiratory distress Chest status: Nontender Breath sounds: Normal. No: Rales, Rhonchi, Stridor, Wheezing Chest palpation: Normal - Cardiovascular Rhythm: Regular Heart sounds: Normal auscultation Murmur: No - Extremities General upper extremity: Normal inspection, Nontender, Normal ROM, Normal strength General lower extremity: Tender, Normal ROM, Normal strength, Normal temperature , Normal weight bearing. No: Edema, Normal color, Shahbaz's sign Foot: Tender. No: Edema, Metatarsal compress. pain, Nail injury, Navicular tenderness, No evidence of FB, Puncture wound, Tender 5th metatarsal Notes: Examination patient's right foot shows that the great toe has a lesion on it at the PIP laterally. It is almost onto the soft pad of the toe itself. There is a area approximately the size of 1.5 cm across its circular nature it has callus type appearance however has a center that has been pulled out by patient. It is very tough matter and tender to touch. Appears to be a plantars wart the patient is attempted to remove with multiple different agents. There is no sign of infection. Patient has flexion and extension of the toe. Good cap refill in the toe. Patient displays good dorsalis pedal pulses and posterior tibials. Further investigation of patient's complaint shows that she states she has numbness from the third toe at its base on the sole to the great toe. Pressure applied up underneath this toe causes pain and discomfort. She has flexion extension of the toes but with difficulty. She has good cap refill in the nails of all those toes. And again when pressure applied up underneath the toe patient has discomfort. - Neurological Neuro grossly intact: Yes Cognition: Normal Orientation: AAOx4 [place] Coma Scale Eye Opening: Spontaneous [place] Coma Scale Verbal: Oriented [place] Coma Scale Motor: Obeys Commands [place] Coma Scale Total: 15 Course - Re-evaluation Re-evalutation: 12/25/17 11:27 Patient's x-ray of her foot was negative for a bone spur. At this time I have given patient the other possibilities this may be for the numbness in the toes. One a bursitis or tendinitis kind of presentation of the third toe. And/or a neuroma. So she is going to have to go to a elastic attacher overlock for removal of the plantar wart that is extensive on the right great toe and she can also talk to them about the numbness on the foot. I would try her on to things a little steroid taper as well as some Neurontin at night for the neuro pain. Patient is in agreement with this. She has tried everything else on the plantar wart [id number] to just does not touch it. - Vital Signs Vital signs: Temp Pulse Resp BP Pulse Ox 97.7 F 75 14 137/99 H 100 12/25/17 10:15 12/25/17 10:15 12/25/17 10:15 12/25/17 10:15 12/25/17 10:15 Discharge - Discharge Clinical Impression: Plantar wart of right foot, Tendinitis Bursitis Qualifiers: Bursitis location: foot Laterality: left Qualified Code(s): M77.52 - Other enthesopathy of left foot Disposition: HOME, SELF-CARE Instructions: Plantar Warts ([facility]), Bursitis ([facility]) Additional Instructions: As I discussed with you the plantar wart you have tried over the counter medications to no avail. It is 1 of those difficult things to get rid of. The size yours is at this time is going to need intervention by his surgeon mostly a elastic attacher overlock. You can contact your primary to see who they recommend. We do not have one steward/stewardess second class here. We will try you on a little gabapentin for nighttime for sleep with the numbness of the toes. And will put gentle steroid taper to see if that helps with the pain as well. He can return to ER if you have any concerns or problems. Prescriptions: Gabapentin 400 mg PO HSP PRN #20 capsule PRN Reason: Prednisone [Sterapred Ds] 10 mg PO ASDIR PRN #1 tab.ds.pk PRN Reason: Forms: Elevated Blood Pressure, Smoking Cessation Education, Parent Work Note
--- NOTE | 2017-12-25 11:03 | RADIOLOGY REPORT (SQ) ---
EXAM DESCRIPTION: FOOT RIGHT COMPLETE COMPLETED DATE/TIME: 12/25/2017 10:47 am REASON FOR STUDY: pain undr 3rd ntoe causing numbness COMPARISON: None. NUMBER OF VIEWS: Three views right foot LIMITATIONS: None. FINDINGS: There is no acute or significant bone, joint or soft tissue abnormality. OTHER: No other significant finding. IMPRESSION: NORMAL STUDY. TECHNICAL DOCUMENTATION: JOB ID: [id number] Reading location - IP/workstation name: [email or web address]
[2017-12-25 11:30] VITALS: BP 127/99
== END 2017-12-25 11:45 | disposition home or self-care (01) ==
LOC: ER 10:10
DX: B07.0 Plantar wart (principal); M77.52 Other enthesopathy of left foot and ankle; R20.0 Anesthesia of skin; F17.210 Nicotine dependence, cigarettes, uncomplicated; I10 Essential (primary) hypertension; Z91.013 Allergy to seafood; M25.50 Pain in unspecified joint
CPT/HCPCS: 99283

== ENCOUNTER 2018-03-30 10:26 | Emergency (ER) | payer SELFPAY ==
[2018-03-30] MEDS ORDERED: LIDOCAINE 5% (700 MG) TRANSDERMAL ADH..PATCH TP ONE (11:52)
[2018-03-30] MEDS ORDERED: KETOROLAC TROMETHAMINE 60 MG/2 ML SDV IM ONE (11:52)
[2018-03-30] MEDS ORDERED: DEXAMETHASONE 4 MG TABLET PO ONE (11:52)
--- NOTE | 2018-03-30 11:57 | ER Document Report ---
ED Neck/Back Problem - General Mode of Arrival: Ambulatory Information source: Patient TRAVEL OUTSIDE OF THE [place] IN LAST 30 DAYS: No - HPI Patient complains to provider of: Pain, Lower back Onset: Other - 2 weeks Onset: Gradual Timing: Worse Quality of pain: Sharp, Throbbing Severity: Severe Pain Level: 5 Context: Lifting, Turning Recent injury: No Associated symptoms: Radiation to leg, Lower back pain. denies: Constipation, Incontinence, Like prior neck/back pain, Numbness/tingling, Radiation to arm, Radiation to chest, Sensory loss, Sweaty, Unable to urinate Exacerbated by: Movement of trunk Relieved by: Nothing Similar symptoms previously: Yes Recently seen / treated by doctor: No - General Chief Complaint: Back Pain Stated Complaint: BACK PAIN Time Seen by Provider: 03/30/18 11:27 Notes: 38-year-old female presents to ED for complaint of low back pain times 2 weeks. She denies any injuries. She denies any loss of control of bowel bladder, denies loss of control of lower extremities. She denies any saddle anesthesia or loss of sensation to lower legs. She states she has had back pain before but never this bad. She states that it is on the lower back goes across both buttock cheeks and down but both legs. (JESSICA JARA) - Related Data Allergies/Adverse Reactions: shellfish derived Allergy (Verified 03/30/18 10:44) Past Medical History - General Information source: Patient - Social History Smoking Status: Current Every Day Smoker Cigarette use (# per day): Yes - 3 cigarettes Chew tobacco use (# tins/day): No Smoking Education Provided: Yes - 4 minutes Frequency of alcohol use: None Drug Abuse: None Lives with: Alone Family History: Reviewed & Not Pertinent Patient has suicidal ideation: No Patient has homicidal ideation: No - Past Medical History Cardiac Medical History: Reports: Hx Hypertension Pulmonary Medical History: Reports: None EENT Medical History: Reports: None Neurological Medical History: Reports: None Endocrine Medical History: Reports: None Renal/ Medical History: Reports: Other - Uterine fibroids Malignancy Medical History: Reports: None GI Medical History: Reports: None Musculoskeletal Medical History: Reports Hx Musculoskeletal Deformity, Reports Hx Musculoskeletal Trauma - Shoulder strain Skin Medical History: Reports None Psychiatric Medical History: Reports: None Traumatic Medical History: Reports: None Infectious Medical History: Reports: None Past Surgical History: Reports: Hx Hysterectomy - Immunizations Immunizations up to date: Yes Review of Systems - Review of Systems Constitutional: No symptoms reported EENT: No symptoms reported Cardiovascular: No symptoms reported Respiratory: No symptoms reported Gastrointestinal: No symptoms reported. denies: Diarrhea, Constipation, Fecal incontinence Genitourinary: No symptoms reported. denies: Incontinence, Retention Female Genitourinary: No symptoms reported Musculoskeletal: Back pain, Muscle pain, Muscle stiffness Skin: No symptoms reported Hematologic/Lymphatic: No symptoms reported Neurological/Psychological: No symptoms reported -: Yes All other systems reviewed and negative Physical Exam - Vital signs Interpretation: Normal - General General appearance: Appears well, Alert - HEENT Head: Normocephalic, Atraumatic Eyes: Normal Pupils: PERRL - Respiratory Respiratory status: No respiratory distress Chest status: Nontender Breath sounds: Normal Chest palpation: Normal - Cardiovascular Rhythm: Regular Heart sounds: Normal auscultation Murmur: No - Abdominal Inspection: Normal Distension: No distension Bowel sounds: Normal Tenderness: Nontender Organomegaly: No organomegaly - Back Back: Normal, Tender, Vertebra tenderness - Lumbar area - Extremities General upper extremity: Normal inspection, Nontender, Normal color, Normal ROM, Normal temperature General lower extremity: Normal inspection, Nontender, Normal color, Normal ROM, Normal temperature, Normal weight bearing. No: Shahbaz's sign - Neurological Neuro grossly intact: Yes Cognition: Normal Orientation: AAOx4 Nicola Coma Scale Eye Opening: Spontaneous Moran Coma Scale Verbal: Oriented Moran Coma Scale Motor: Obeys Commands Moran Coma Scale Total: 15 Speech: Normal Motor strength normal: LUE, RUE, LLE, RLE Sensory: Normal - Psychological Associated symptoms: Normal affect, Normal mood - Skin Skin Temperature: Warm Skin Moisture: Dry Skin Color: Normal - Vital signs Vitals: Temp Pulse Resp BP 98.5 F 66 14 130/85 H 03/30/18 10:46 03/30/18 10:46 03/30/18 10:46 03/30/18 10:46 - Back Notes: Patient denies any signs or symptoms of cauda equina, no loss of control of bowel or bladder, no saddle anesthesia, no loss control of lower extremities, no loss of sensation to lower extremities. No bulging pulsating knots to the abdomen. (JESSICA JARA) Course - Diagnostic Test Radiology reviewed: Image reviewed, Reports reviewed - Re-evaluation Re-evalutation: 03/30/18 21:34 X-ray results were discussed with patient and written report of x-rays were given to patient. Patient was treated with steroids Toradol and Lidoderm patch. After performing a Medical Screening Examination, I estimate there is LOW risk for EXPANDING OR RUPTURED ABDOMINAL AORTIC ANEURYSM, CAUDA EQUINA SYNDROME, EPIDURAL MASS LESION, or HERNIATED DISK CAUSING SEVERE SPINAL STENOSIS, thus I consider the discharge disposition reasonable. I have reevaluated this patient multiple times and no significant life threatening changes are noted. The patient and I have discussed the diagnosis and risks, and we agree with discharging home and close follow-up. We also discussed returning to the Emergency Department immediately if new or worsening symptoms occur with the understanding that symptoms and presentations can change. We have discussed the symptoms which are most concerning (e.g., saddle anesthesia, urinary or bowel incontinence or retention, changing or worsening pain) that necessitate immediate return. (JESSICA JARA) 03/31/18 20:29 I was personally available for consultation during this patient's worse. I did not personally evaluate the patient. (VINNIE EVANS) - Vital Signs Vital signs: Temp Pulse Resp BP Pulse Ox 97.8 F 82 16 130/84 H 100 03/30/18 13:15 03/30/18 13:15 03/30/18 13:15 03/30/18 13:15 03/30/18 13:15 Discharge - Discharge Clinical Impression: Lumbar degenerative disc disease Condition: Stable Disposition: HOME, SELF-CARE Instructions: Family Physicians / Practices Additional Instructions: LOW BACK PAIN: Three out of every four people will have an episode of disabling back pain during their lifetime. Most commonly the pain is due to straining of the muscles and ligaments in the low back. Usual treatment includes: (1) Rest on a firm surface. Avoid lying on your stomach. (2) Ice pack the painful area. After a few days, gentle heat may be used intermittently to relax the area, or ice packs can be continued. (3) Medication may be needed -- muscle relaxers and antiinflammatory medicines are commonly used. (4) As the back improves, exercises are prescribed to strengthen the back and abdominal muscles. Your doctor will advise you on the proper care for your back at each stage in your recovery. You may be better in a few days -- or healing may take several weeks. If new symptoms of a "herniated disc" (radiation of pain, numbness, or tingling down the back of the leg or weakness in the leg) occur, you should be re-examined. Further testing may be necessary. MUSCLE RELAXERS: Muscle relaxing medications are usually prescribed for acute muscle spasm or injury to the neck and back. They are often combined with antiinflammatory pain medication for increased relief. You may stop the muscle relaxer when the pain and stiffness have improved. Start the medication again if spasms recur. Muscle relaxers may cause drowsiness, especially with the first dose. Do not operate machinery or drive while under the effects of the medication. Most muscle relaxers last up to 24 hours. Do not combine the medication with alcohol. ICE PACKS: Apply ice packs frequently against the painful area. Many different schedules are recommended, such as "20 minutes on, 20 minutes off" or "one hour ice, two hours rest." If you need to work, you may need to go longer between ice treatments. You should plan to have the area ice packed AT LEAST one fourth of the time. The ice should be applied over the wrap, tape, or splint, or over a layer of cloth -- not directly against the skin. Some ice bags have a built-in cloth and can be put directly on the skin. WARM PACKS: After approximately two days, apply gentle heat (such as a heating pad or hot water bottle) for about 20 to 30 minutes about every two hours -- at least four times daily. Warmth and elevation will help you make a more rapid recovery, and will ease the pain considerably. Do not use HOT heat, and never apply heat for longer than 30 minutes. The continuous heat can invisibly damage skin and muscles -- even when no burn is seen on the surface. Damaged muscles can make you MORE sore. STEROID MEDICATION: You have been given a medicine of the cortisone/steroid class. This medication is used to control inflammation or allergy. It is usually only given for a short period of time, until the acute process subsides. There are usually no side effects from short-term use of cortisone-like medications. Some persons feel an increased sense of well-being and are not sle epy at bedtime. Long-term use of cortisone medications is best avoided, unless required for a severe condition. If your condition does not remit, or relapses after the course of corticosteroid medication, you should consult your physician. Toradol Injection You have been given an injection of ketorolac tromethamine (Toradol). This is an excellent, safe drug for pain control. It also has potent antiinflammatory action. You should have significant pain relief within about one hour. Toradol is not addicting and is non-sedating. It does not interfere with d riving or work. Call or return if you develop itching, hives, shortness of breath, or rash. Stretching Exercises for the Back The physician has recommended that you begin stretching exercises for your back. These are often used even while the back is painful. However, you should notify the physician if the activities seem to increase your pain. PELVIC TILT: Lie flat on your back with knees bent. Tighten your stomach and buttock muscles so it flattens your lower back against the floor. Hold 10 seconds. Repeat 10 times, twice daily. KNEE RAISE: Lying on the back with knees bent, raise one knee to your chest, then the other. Hold both knees against the chest 10 seconds, then lower one knee at a time. Repeat 10 times, twice daily. PARTIAL TRUNK RAISE: Lie face down, arms at your sides. Keeping your waist on the floor, use your arms raise your chest up. Support yourself on your elbows for 30 seconds. Repeat twice daily, increasing the time to two minutes as you recover. FOLLOW-UP CARE: If you have been referred to a physician for follow-up care, call the physicians office for an appointment as you were instructed or within the next two days. If you experience worsening or a significant change in your symptoms, notify the physician immediately or return to the Emergency Department at any time for re-evaluation. Prescriptions: RX: Ibuprofen [Motrin 600 mg Tablet] 600 mg PO Q8HP PRN #30 tablet PRN Reason: Cyclobenzaprine HCl [Flexeril 10 mg Tablet] 10 mg PO TIDP PRN #15 tab PRN Reason: Lidocaine [Lidoderm 5% (700 mg) Transdermal Patch] 1 patch TP DAILY #30 adh..patch Forms: Elevated Blood Pressure, Smoking Cessation Education, Return to Work
--- NOTE | 2018-03-30 12:31 | RADIOLOGY REPORT (SQ) ---
EXAM DESCRIPTION: L SPINE WHOLE COMPLETED DATE/TIME: 03/30/2018 12:07 pm REASON FOR STUDY: low back pian radiating both legs COMPARISON: None. NUMBER OF VIEWS: Five views including obliques. TECHNIQUE: AP, lateral, oblique, and sacral radiographic images acquired of the lumbar spine. LIMITATIONS: None. FINDINGS: MINERALIZATION: Normal. SEGMENTATION: Normal. No transitional anatomy. ALIGNMENT: Normal. VERTEBRAE: Maintained height. No fracture or worrisome bone lesion. DISCS: Disc space narrowing and osteophyte formation L5-S1. POSTERIOR ELEMENTS: Pedicles and facets are intact. No pars defect or posterior arch defects. HARDWARE: None in the spine. PARASPINAL SOFT TISSUES: Normal. PELVIS: Intact as visualized. No fractures or worrisome bone lesions. SI joints intact. OTHER: No other significant finding. IMPRESSION: Disc disease at L5-S1. TECHNICAL DOCUMENTATION: JOB ID: [id number] 1929[employer]- All Rights Reserved Reading location - IP/workstation name: [email or web address]
[2018-03-30 13:15] VITALS: BP 130/84
== END 2018-03-30 13:15 | disposition home or self-care (01) ==
LOC: ER 10:26
DX: M51.36 Other intervertebral disc degeneration, lumbar region (principal); M54.5 Low back pain; M79.604 Pain in right leg; M79.605 Pain in left leg; F17.210 Nicotine dependence, cigarettes, uncomplicated; I10 Essential (primary) hypertension
CPT/HCPCS: 99406; 99283; 96372; 72110; J1885

== ENCOUNTER 2018-04-05 19:23 | Emergency (ER) | payer SELFPAY ==
[2018-04-05] MEDS ORDERED: KETOROLAC TROMETHAMINE 60 MG/2 ML SDV IM ONE (20:54)
[2018-04-05] MEDS ORDERED: CYCLOBENZAPRINE HCL 10 MG TABLET PO ONE (20:55)
--- NOTE | 2018-04-05 21:20 | ER Document Report ---
ED General - General Chief Complaint: Neck and Upper Back Pain Stated Complaint: RIGHT SIDE BODY PAIN Time Seen by Provider: 04/05/18 20:47 Mode of Arrival: Ambulatory Information source: Patient Notes: 38-year-old female presents emergency department with complaints of muscle strain. Patient states that the right side of her neck her right shoulder her right leg feel as if she pulled something. Patient states that this is been going on for a couple of weeks. She was seen on March 30 with similar complaints. Patient received steroids, Toradol, Lidoderm patch on the emergency department. She was discharged home with Motrin, Lidoderm patch, Flexeril. Patient states she has been taking the medication as directed with minimal relief of symptoms. She denies any fever, chills, numbness, tingling, weakness, bowel or bladder incontinence. She is able to ambulate. TRAVEL OUTSIDE OF THE [place] IN LAST 30 DAYS: No - HPI Onset: Other - 3 weeks Onset/Duration: Persistent Quality of pain: Other - pulled muscle sensation Severity: Mild Associated symptoms: None Exacerbated by: Denies Relieved by: Denies Similar symptoms previously: Yes Recently seen / treated by doctor: Yes - Related Data Allergies/Adverse Reactions: shellfish derived Allergy (Verified 03/30/18 10:44) Past Medical History - General Information source: Patient - Social History Smoking Status: Current Every Day Smoker Chew tobacco use (# tins/day): No Drug Abuse: None Family History: Reviewed & Not Pertinent Patient has suicidal ideation: No Patient has homicidal ideation: No - Past Medical History Cardiac Medical History: Reports: Hx Hypertension Renal/ Medical History: Denies: Hx Peritoneal Dialysis Musculoskeletal Medical History: Reports Hx Musculoskeletal Deformity, Reports Hx Musculoskeletal Trauma - Shoulder strain Past Surgical History: Reports: Hx Hysterectomy - Immunizations Immunizations up to date: Yes Review of Systems - Review of Systems Constitutional: No symptoms reported EENT: No symptoms reported Cardiovascular: No symptoms reported Respiratory: No symptoms reported Gastrointestinal: No symptoms reported Genitourinary: No symptoms reported Female Genitourinary: No symptoms reported Musculoskeletal: Muscle pain Skin: No symptoms reported Hematologic/Lymphatic: No symptoms reported Neurological/Psychological: No symptoms reported -: Yes All other systems reviewed and negative Physical Exam - Vital signs Vitals: Temp Pulse Resp BP Pulse Ox 97.7 F 79 16 128/90 H 100 04/05/18 19:53 04/05/18 19:53 04/05/18 19:53 04/05/18 19:53 04/05/18 19:53 - Notes Notes: PHYSICAL EXAMINATION: GENERAL: Well-appearing, well-nourished and in no acute distress. HEAD: Atraumatic, normocephalic. EYES: Pupils equal round and reactive to light, extraocular movements intact, conjunctiva are normal. ENT: Nares patent, oropharynx clear without exudates. Moist mucous membranes. NECK: Normal range of motion, supple without lymphadenopathy. No meningeal signs. LUNGS: Breath sounds clear to auscultation bilaterally and equal. No wheezes rales or rhonchi. HEART: Regular rate and rhythm without murmurs ABDOMEN: Soft, nontender, nondistended abdomen. No guarding, no rebound. No masses appreciated. Female : deferred Musculoskeletal: Normal range of motion, no pitting or edema. No cyanosis. Right paracervical tenderness to palpation, right trapezius muscle tenderness to palpation, right paralumbar muscle tenderness to palpation. NEUROLOGICAL: Cranial nerves grossly intact. Normal speech, normal gait. Normal sensory, motor exams PSYCH: Normal mood, normal affect. SKIN: Warm, Dry, normal turgor, no rashes or lesions noted. Course - Re-evaluation Re-evalutation: 04/05/18 21:18 Patient given Toradol and Flexeril while in the emergency department. I will discharge her home with a different muscle relaxant. I told her to take the medication prescribed as directed, to follow-up with her primary care physician this week, and to return for any worsening symptoms. Patient is agreeable with plan of care. - Vital Signs Vital signs: Temp Pulse Resp BP Pulse Ox 97.7 F 79 16 128/90 H 100 04/05/18 19:53 04/05/18 19:53 04/05/18 19:53 04/05/18 19:53 04/05/18 19:53 Discharge - Discharge Clinical Impression: Muscle strain Condition: Good Disposition: HOME, SELF-CARE Instructions: Muscle Strain ([facility]) Prescriptions: Orphenadrine Citrate 100 mg PO BID PRN #10 tablet.sa PRN Reason: Forms: Return to Work Referrals: ZAINAB MONTOYA MD [ACTIVE STAFF] - Follow up as needed
[2018-04-05 21:47] VITALS: BP 137/90
== END 2018-04-05 21:47 | disposition home or self-care (01) ==
LOC: ER 19:23
DX: M54.2 Cervicalgia (principal); M54.6 Pain in thoracic spine; M25.511 Pain in right shoulder; M79.604 Pain in right leg; Z79.899 Other long term (current) drug therapy; F17.200 Nicotine dependence, unspecified, uncomplicated; I10 Essential (primary) hypertension
CPT/HCPCS: 99283; 96372; J1885

== ENCOUNTER 2018-04-12 17:44 | Emergency (ER) | payer SELFPAY ==
[2018-04-12 19:19] LABS: APPEARANCE,URINE CLOUDY; BILIRUBIN,URINE NEGATIVE (NEGATIVE); COLOR,URINE YELLOW; GLUCOSE, URINE NEGATIVE (NEGATIVE); KETONES,URINE NEGATIVE (NEGATIVE); LEUKOCYTE ESTERASE,URINE MODERATE (NEGATIVE); NITRITE,URINE NEGATIVE (NEGATIVE); PROTEIN,URINE NEGATIVE (NEGATIVE); URINE SPECIFIC GRAVITY 1.018; UROBILINOGEN,URINE NEGATIVE mg/dL (<2.0)
[2018-04-12] MEDS ORDERED: LIDOCAINE 5% (700 MG) TRANSDERMAL ADH..PATCH TP ONE (19:56)
[2018-04-12] MEDS ORDERED: GABAPENTIN 100 MG CAPSULE PO ONE (20:04)
--- NOTE | 2018-04-12 20:11 | ER Document Report ---
ED General - General Chief Complaint: Flank Pain Stated Complaint: FLANK PAIN Time Seen by Provider: 04/12/18 18:57 TRAVEL OUTSIDE OF THE [place] IN LAST 30 DAYS: No - HPI Patient complains to provider of: Right lateral back pain Notes: Patient coming in for evaluation of right lateral back pain. Patient has been seen on previous occasions for similar pain. Patient states her pain is not getting any better with the muscle relaxers provided. Patient denies any fevers chills nausea vomiting denies any numbness or tingling in the perineal region. Patient denies any bowel or bladder incontinence. Patient denies any trauma patient states she was on anti-inflammatory medication however states that she is stopped taking it as that was not helping out her pain control. Patient states that the pain is sharp shooting and sometimes feels warm - Related Data Allergies/Adverse Reactions: iodine Allergy (Verified 04/12/18 17:49) shellfish derived Allergy (Verified 03/30/18 10:44) Past Medical History - Social History Smoking Status: Current Every Day Smoker Chew tobacco use (# tins/day): No Frequency of alcohol use: None Drug Abuse: None Family History: Reviewed & Not Pertinent Patient has suicidal ideation: No Patient has homicidal ideation: No - Past Medical History Cardiac Medical History: Reports: Hx Hypertension Renal/ Medical History: Denies: Hx Peritoneal Dialysis Musculoskeletal Medical History: Reports Hx Musculoskeletal Deformity, Reports Hx Musculoskeletal Trauma - Shoulder strain Past Surgical History: Reports: Hx Hysterectomy - Immunizations Immunizations up to date: Yes Review of Systems - Review of Systems Constitutional: No symptoms reported EENT: No symptoms reported Cardiovascular: No symptoms reported Respiratory: No symptoms reported Gastrointestinal: No symptoms reported Genitourinary: No symptoms reported Female Genitourinary: No symptoms reported Musculoskeletal: Back pain Skin: No symptoms reported Hematologic/Lymphatic: No symptoms reported Neurological/Psychological: No symptoms reported -: Yes All other systems reviewed and negative Physical Exam - Vital signs Vitals: Temp Pulse Resp BP Pulse Ox 98.1 F 70 18 141/93 H 100 04/12/18 18:14 04/12/18 18:14 04/12/18 18:14 04/12/18 18:14 04/12/18 18:14 Interpretation: Normal - General General appearance: Appears well, Alert - HEENT Head: Normocephalic, Atraumatic Eyes: Normal Pupils: PERRL - Respiratory Respiratory status: No respiratory distress Chest status: Nontender Breath sounds: Normal Chest palpation: Normal - Cardiovascular Rhythm: Regular Heart sounds: Normal auscultation Murmur: No - Abdominal Inspection: Normal Distension: No distension Bowel sounds: Normal Tenderness: Nontender Organomegaly: No organomegaly - Back Back: Normal, Tender - Patient with paraspinal tenderness in the right side of her back just above the iliac crest palpation of the piriformis muscle does not really produce any pain down her leg - Extremities General upper extremity: Normal inspection, Nontender, Normal color, Normal ROM, Normal temperature General lower extremity: Normal inspection, Nontender, Normal color, Normal ROM, Normal temperature, Normal weight bearing. No: Shahbaz's sign - Neurological Neuro grossly intact: Yes Cognition: Normal Orientation: AAOx4 Nicola Coma Scale Eye Opening: Spontaneous Nicola Coma Scale Verbal: Oriented [place] Coma Scale Motor: Obeys Commands Nicola Coma Scale Total: 15 Speech: Normal Motor strength normal: LUE, RUE, LLE, RLE Sensory: Normal - Psychological Associated symptoms: Normal affect, Normal mood - Skin Skin Temperature: Warm Skin Moisture: Dry Skin Color: Normal Course - Re-evaluation Re-evalutation: 04/13/18 03:17 Urinalysis not show any gross hematuria consistent with renal stone. Patient urine will be sent for culture. At this time patient denies any history of dysuria or fever did not think patient has any underlying infection or pyelonephritis. More likely muscle skeletal etiology of the patient's pain recommend continued use of anti-inflammatory medications muscle stretching we will also initiate therapy with Neurontin she is is also to aid in the patient's pain. 04/13/18 03:18 The patient presents with low back pain without signs of spinal cord compression, cauda equina syndrome, infection, aneurysm, or other serious etiology. The patient is neurologically intact. Given the extremely low risk of these diagnoses further testing and evaluation for these possibilities does not appear to be indicated at this time. The patient has been instructed to return if the symptoms worsen or change in any way. - Vital Signs Vital signs: Temp Pulse Resp BP Pulse Ox 98.3 F 63 18 135/79 H 100 04/12/18 20:52 04/12/18 20:52 04/12/18 20:52 04/12/18 20:52 04/12/18 20:52 - Laboratory Laboratory results interpreted by me: 04/12/18 18:48 Urine Blood SMALL H Ur Leukocyte Esterase MODERATE H Discharge - Discharge Clinical Impression: Back pain Qualifiers: Back pain location: low back pain Chronicity: chronic Back pain laterality: right Sciatica presence: without sciatica Qualified Code(s): M54.5 - Low back pain Condition: Good Disposition: HOME, SELF-CARE Instructions: Anti-Inflammatory Medication ([facility]), Chronic Back Pain ([facility]), Stretching Exercises for the Back ([facility]) Additional Instructions: Your urinalysis does not show any signs suggestive of a kidney stone or any signs of infection we will seen your urine for culture to make sure that there is no signs of any infection in your urine. Your examination is consistent with a muscle skeletal cause of your back pain I would highly recommend that you continue take anti-inflammatory medication such as motion prescribed along with Tylenol he may try warm packs ice packs to the area also help out with pain he may also continue to take the muscle relaxers given to you on your previous visits I would recommend trying the Neurontin and taking all of the tablets until they are completed to help out with your pain. Please follow-up with your primary care physician return to ER symptoms worsen. I would also recommend pe rforming the back stretching exercises to help out with your muscle skeletal pain. Prescriptions: Ibuprofen [Motrin 600 mg Tablet] 600 mg PO Q8HP PRN #21 tablet PRN Reason: Gabapentin [Neurontin 100 mg Capsule] 100 mg PO Q12 #60 capsule Forms: Return to Work Referrals: [facility] [Primary Care Provider] - Follow up as needed
[2018-04-12 20:56] VITALS: BP 135/79
== END 2018-04-12 20:56 | disposition home or self-care (01) ==
LOC: ER 17:44
DX: M54.5 Low back pain (principal); G89.29 Other chronic pain; I10 Essential (primary) hypertension; F17.200 Nicotine dependence, unspecified, uncomplicated; Z91.013 Allergy to seafood
CPT/HCPCS: 81001; 81025; 87086; 87088; 87186; 99284

== ENCOUNTER 2018-12-12 17:50 | Emergency (ER) | payer SELFPAY ==
--- NOTE | 2018-12-12 18:16 | EKG REPORT ---
SEVERITY:- ABNORMAL ECG - SINUS RHYTHM FIRST DEGREE AV BLOCK : Confirmed by: Jose Alberto Claire MD 12-Dec-2018 18:16:13
--- NOTE | 2018-12-12 18:58 | ER Document Report ---
ED Medical Screen (RME) - General Chief Complaint: Chest Pain Stated Complaint: CHEST,BACK PAIN Time Seen by Provider: 12/12/18 18:49 Primary Care Provider: BARNEY SERVIN,MAURO [Primary Care Provider] - Follow up as needed Mode of Arrival: Ambulatory Information source: Patient Notes: Patient is a 38-year-old female presenting to the emergency department chief c omplaint of elevated blood pressure, chest pain, headache and dizziness. Patient reports all symptoms started on Wednesday. She states that that time she had missed her blood pressure medication for approximately 1 week. She states the chest pain is associated nausea with palpitations. She states the pain is located in the middle of her chest and feels like a tight squeezing sensation. Exam: Heart sounds S1-S2 present with no ectopy noted, normal rate, normal rhythm. Lung sounds clear and equal bilaterally, no increased work of breathing. I have greeted and performed a rapid initial assessment of this patient. A comprehensive ED assessment and evaluation of the patient, analysis of test results and completion of the medical decision making process will be conducted by additional ED providers. I have specifically instructed the patient or family members with the patient to immediately return to any nursing staff should anything change in the patient's condition or with their chief complaint. This medical record was dictated with voice recognizing software. There may be grammatical, syntax errors that are unintended. TRAVEL OUTSIDE OF THE [place] IN LAST 30 DAYS: No - Related Data Allergies/Adverse Reactions: iodine Allergy (Verified 12/12/18 17:54) shellfish derived Allergy (Verified 12/12/18 17:54) Past Medical History - Social History Frequency of alcohol use: None Drug Abuse: None - Past Medical History Cardiac Medical History: Reports: Hx Hypertension Renal/ Medical History: Denies: Hx Peritoneal Dialysis Musculoskeltal Medical History: Reports Hx Musculoskeletal Deformity, Reports Hx Musculoskeletal Trauma - Shoulder strain Past Surgical History: Reports: Hx Hysterectomy - Immunizations Immunizations up to date: Yes Physical Exam - Vital signs Vitals: Temp Pulse Resp BP Pulse Ox 98.0 F 90 16 127/92 H 98 12/12/18 18:17 12/12/18 18:17 12/12/18 18:17 12/12/18 18:17 12/12/18 18:17 Course - Vital Signs Vital signs: Temp Pulse Resp BP Pulse Ox 98.0 F 90 16 127/92 H 98 12/12/18 18:17 12/12/18 18:17 12/12/18 18:17 12/12/18 18:17 12/12/18 18:17 Doctor's Discharge - Discharge Referrals: [facility] [Primary Care Provider] - Follow up as needed
--- NOTE | 2018-12-12 19:47 | RADIOLOGY REPORT (SQ) ---
EXAM DESCRIPTION: CHEST 2 VIEWS COMPLETED DATE/TIME: 12/12/2018 7:27 pm REASON FOR STUDY: chest pain COMPARISON: 06/28/2017 EXAM PARAMETERS: NUMBER OF VIEWS: two views TECHNIQUE: Digital Frontal and Lateral radiographic views of the chest acquired. RADIATION DOSE: NA LIMITATIONS: none FINDINGS: LUNGS AND PLEURA: No opacities, masses or pneumothorax. No pleural effusion. MEDIASTINUM AND HILAR STRUCTURES: No masses or contour abnormalities. HEART AND VASCULAR STRUCTURES: Heart normal size. No evidence for failure. BONES: No acute findings. HARDWARE: None in the chest. OTHER: No other significant finding. IMPRESSION: NO ACUTE RADIOGRAPHIC FINDING IN THE CHEST. TECHNICAL DOCUMENTATION: JOB ID: [id number] [employer]- All Rights Reserved Reading location - IP/workstation name: [email or web address]
[2018-12-12 19:48] LABS: APPEARANCE,URINE SLIGHTLY-CLOUDY; BILIRUBIN,URINE NEGATIVE (NEGATIVE); COLOR,URINE YELLOW; GLUCOSE, URINE NEGATIVE (NEGATIVE); KETONES,URINE TRACE mg/dL (NEGATIVE); LEUKOCYTE ESTERASE,URINE NEGATIVE (NEGATIVE); NITRITE,URINE NEGATIVE (NEGATIVE); PROTEIN,URINE NEGATIVE (NEGATIVE); URINE SPECIFIC GRAVITY 1.028
[2018-12-12 19:55] LABS: ABSOLUTE BASOPHILS # (AUTO) 0.1 10^3/uL (0.0-0.2); ABSOLUTE EOSINOPHILS # (AUTO) 0.1 10^3/uL (0.0-0.6); ABSOLUTE LYMPHOCYTES (AUTO) 2.4 10^3/uL (0.5-4.7); ABSOLUTE MONOCYTES (AUTO) 0.3 10^3/uL (0.1-1.4); ABSOLUTE NEUT (AUTO) 3.4 10^3/uL (1.7-8.2); ALBUMIN 4.8 g/dL (3.5-5.0); ALKALINE PHOSPHATASE 70 U/L (38-126); ANION GAP 11 (5-19); ASPARTATE AMINO TRANSFERASE 25 U/L (14-36); BILIRUBIN,DIRECT 0.1 mg/dL (0.0-0.4); BILIRUBIN,TOTAL 0.4 mg/dL (0.2-1.3); BLOOD UREA NITROGEN 17 mg/dL (7-20); CALCIUM 10.6 mg/dL (8.4-10.2); CARBON DIOXIDE 24 mmol/L (22-30); CHLORIDE 103 mmol/L (98-107); GLUCOSE 128 mg/dL (75-110); HEMATOCRIT 43.6 % (36.0-47.0); HEMOGLOBIN 14.7 g/dL (12.0-15.5); LYMPHOCYTES % (AUTO) 38.2 % (13-45); MEAN CORPUSCULAR HEMOGLOBIN 29.2 pg (27.0-33.4); MEAN CORPUSCULAR HGB CONC 33.7 g/dL (32.0-36.0); MEAN CORPUSCULAR VOLUME 87 fl (80-97); MONOCYTES % (AUTO) 4.9 % (3-13); PLATELET COUNT 274 10^3/uL (150-450); POTASSIUM 3.5 mmol/L (3.6-5.0); RED BLOOD COUNT 5.02 10^6/uL (3.72-5.28); RED CELL DISTRIBUTION WIDTH 13.4 % (11.5-14.0); SEGMENTED NEUTROPHILS % (AUTO) 53.9 % (42-78); TOTAL CELLS COUNTED % (AUTO) 100 %; TOTAL PROTEIN 7.9 g/dL (6.3-8.2); WHITE BLOOD COUNT 6.2 10^3/uL (4.0-10.5)
--- NOTE | 2018-12-12 21:36 | ER Document Report ---
ED Cardiac - General Chief Complaint: Chest Pain Stated Complaint: CHEST,BACK PAIN Time Seen by Provider: 12/12/18 21:36 Primary Care Provider: [facility] [Primary Care Provider] - Follow up as needed Mode of Arrival: Ambulatory Information source: Patient, Friend Notes: HISTORY OF PRESENT ILLNESS: Patient is a 38-year-old female with a past medical history of hypertension who presents with chest pain beginning prior to arrival. Patient reports that she is a smoker and received 1 breathing treatment from her niece prior to arrival with some improvement. Location: "All across my chest, worse in the middle when I cough" Onset: Prior to arrival Alleviation: None Provocation: Coughing Quality: Sharp Radiation: None Severity: Moderate at worst, currently mild Timing: Intermittent History of CAD: None Associated symptoms: Denies shortness of breath, no fevers or chills, no known sick contacts REVIEW OF SYSTEMS: CONSTITUTIONAL : Denies fever or chills, no sweats. Denies recent illness. EENT: Denies eye, ear, throat, or mouth pain or symptoms. Denies nasal or sinus congestion. CARDIOVASCULAR: Positive for chest pain. Denies swelling of the legs. RESPIRATORY: Positive for cough but no cold or congestion. Denies shortness of breath or difficulty breathing. Denies wheezing. GASTROINTESTINAL: Denies abdominal pain. Denies nausea, vomiting, or diarrhea. Denies constipation. GENITOURINARY: Denies difficulty urinating, painful urination, burning, frequency, or blood in urine. FEMALE GENITOURINARY: Denies vaginal bleeding, abnormal or irregular periods. MUSCULOSKELETAL: Denies neck or back pain or joint pain or swelling. SKIN: Denies rash or skin lesions. HEMATOLOGIC : Denies easy bruising or bleeding. LYMPHATIC: Denies swollen, enlarged glands. NEUROLOGICAL: Denies altered mental status or loss of consciousness. Denies headache. Denies weakness or paralysis or loss of use of either side. Denies problems with gait or speech. Denies sensory or motor loss. PSYCHIATRIC: Denies anxiety or stress or depression. All other systems reviewed and negative. PHYSICAL EXAMINATION: GENERAL: Well-appearing, well-nourished and in no acute distress. HEAD: Atraumatic, normocephalic. No scalp deformity, depression, or crepitance. EYES: Pupils are 3 mm and equal/round/reactive to light, extraocular movements intact, sclera anicteric, conjunctiva are normal. ENT: Nares patent bilaterally, oropharynx. Moist mucous membranes. No tonsil hypertrophy. NECK: Normal range of motion, supple without lymphadenopathy. LUNGS: Breath sounds present and equal bilaterally with an occasional faint wheeze.. No rales or rhonchi. HEART: Regular rate and rhythm without murmurs, rubs, or gallops. 2+ peripheral pulses. Normal capillary refill. ABDOMEN: Soft, nontender, nondistended. Normoactive bowel sounds. No guarding, no rebound. No masses appreciated. BACK: Normal contour, no midline tenderness. Rectal exam deferred. GENITAL/PELVIC: Deferred. EXTREMITIES: Normal range of motion, no pitting or edema. No cyanosis. NEUROLOGICAL: No focal neurological deficits. Moves all extremities spontaneously and on command. PSYCH: Normal mood, normal affect. No suicidal thoughts/ideations. No homicidal thoughts/ideations. No hallucinations. SKIN: Warm, dry, normal turgor, no rashes or lesions noted. ASSESSMENT AND PLAN: This patient is a 38-year-old female who presents with sharp chest pain worse with coughing in the absence of fevers or known sick contacts. 1. Will obtain labs, cardiac enzymes, urine, and chest x-ray. 2. Will give albuterol and reassess. TRAVEL OUTSIDE OF THE [place] IN LAST 30 DAYS: No - HPI Patient complains to provider of: Chest pain, Chest tightness Use of: Other - Cigarettes Was the onset of pain: Gradual Is the pain a: New problem Chest pain location: Pleuritic Quality of pain: Mild, Sharp Chest pain radiation location: None Severity now: Mild Severity at worst: Moderate Pain level currently: 1 Cardiac risk factors: Hypertension Positive cardiac history: No Associated symptoms: Other - Cough Exacerbated by: Coughing Relieved by: Nothing Similar symptoms previously: No Recently seen / treated by doctor: No - Related Data Allergies/Adverse Reactions: iodine Allergy (Verified 12/12/18 17:54) shellfish derived Allergy (Verified 12/12/18 17:54) Past Medical History - General Information source: Patient, Friend - Social History Smoking Status: Current Every Day Smoker Chew tobacco use (# tins/day): No Frequency of alcohol use: None Drug Abuse: None Lives with: Friend Family History: Reviewed & Not Pertinent Patient has suicidal ideation: No Patient has homicidal ideation: No - Past Medical History Cardiac Medical History: Reports: Hx Hypertension Pulmonary Medical History: Reports: None EENT Medical History: Reports: None Neurological Medical History: Reports: None Endocrine Medical History: Reports: None Renal/ Medical History: Reports: None. Denies: Hx Peritoneal Dialysis Malignancy Medical History: Reports: None GI Medical History: Reports: None Musculoskeletal Medical History: Reports Hx Musculoskeletal Deformity, Reports Hx Musculoskeletal Trauma - Shoulder strain Skin Medical History: Reports None Psychiatric Medical History: Reports: None Traumatic Medical History: Reports: None Infectious Medical History: Reports: None Past Surgical History: Reports: Hx Hysterectomy - Immunizations Immunizations up to date: Yes Review of Systems - Review of Systems Constitutional: No symptoms reported EENT: No symptoms reported Cardiovascular: See HPI, Chest pain Respiratory: See HPI, Cough Gastrointestinal: No symptoms reported Genitourinary: No symptoms reported Female Genitourinary: No symptoms reported Musculoskeletal: No symptoms reported Skin: No symptoms reported Hematologic/Lymphatic: No symptoms reported Neurological/Psychological: No symptoms reported -: Yes All other systems reviewed and negative Physical Exam - Vital signs Vitals: Temp Pulse Resp BP Pulse Ox 98.0 F 90 16 127/92 H 98 12/12/18 18:17 12/12/18 18:17 12/12/18 18:17 12/12/18 18:17 12/12/18 18:17 Interpretation: Normal Course - Re-evaluation Re-evalutation: 12/13/18 00:02 Blood work, including troponin, are negative. Chest x-ray is also negative. Could possibly be early pneumonia versus bronchitis. Will discharge the patient home with strict return precautions and follow-up with primary care. All results were explained to and discussed with the patient, and all questions addressed and answered for the patient. The patient and her fast food fry cook voice both understanding and agreeing with the plan. - Vital Signs Vital signs: Temp Pulse Resp BP Pulse Ox 97.8 F 67 18 136/101 H 99 12/12/18 22:38 12/12/18 22:38 12/12/18 22:38 12/12/18 22:38 12/12/18 22:38 - Laboratory Result Diagrams: 12/12/18 19:13 12/12/18 19:13 Laboratory results interpreted by me: 12/12/18 12/12/18 19:13 19:13 Potassium 3.5 L Glucose 128 H Calcium 10.6 H Urine Ketones TRACE H Urine Urobilinogen 2.0 H Urine Ascorbic Acid 40 H - Diagnostic Test Radiology reviewed: Image reviewed, Reports reviewed - EKG Interpretation by Me EKG shows normal: Sinus rhythm Rate: Normal Rhythm: NSR [place]/QRS: No: Right axis deviation, Left axis deviation, RBBB, LBBB, IVCD, LAHB/LAFB, LPHB/LPFB, Bifasicular block Voltage: No: Increased voltage, Consistant with LVH, Decreased voltage, Throughout, Limb leads P Waves: No: SHERRY, LAE, Absent, AV Dissociation, Other Heart block present: No: 1st Degree, Mobitz 1, Mobitz 2, CHB (3rd degree block) When compared to previous EKG there are: No significant change Discharge - Discharge Clinical Impression: Bronchitis Chest pain Qualifiers: Chest pain type: unspecified Qualified Code(s): R07.9 - Chest pain, unspecified Condition: Good Disposition: HOME, SELF-CARE Instructions: Chest Pain of Unclear Cause ([facility]), Bronchitis ([facility]) Additional Instructions: You have been evaluated in the Emergency Department for cough and chest pain. While here, you had normal blood work and no active infection or fluid on chest x-ray and it is now safe to be discharged home. Please follow-up with your primary physician as instructed in one week to be rechecked. Return to the Emergency Department if you experience worsening pain, inability to breathe, high fevers uncontrolled with medications, or any other concerning symptoms. Prescriptions: Methylprednisolone [Medrol Dosepack (4 mg/Tab) 21 Tab/Dosepak] 4 mg PO ASDIR PRN #21 tab.ds.pk PRN Reason: Azithromycin [Zithromax 250 mg Tablet] 250 mg PO ASDIR PRN #6 tablet PRN Reason: Referrals: [facility] [Primary Care Provider] - Follow up as needed Print Language: French
[2018-12-12] MEDS ORDERED: ALBUTEROL SULFATE HFA (90 MCG/PUFF) 8 GM MDI (1 MDI/ER DISP) IH PRN (22:23)
[2018-12-12] MEDS ORDERED: AZITHROMYCIN 250 MG TABLET PO ONE (22:23)
[2018-12-12 22:39] VITALS: BP 136/101
== END 2018-12-13 00:14 | disposition home or self-care (01) ==
LOC: ER 17:50
DX: J40 Bronchitis, not specified as acute or chronic (principal); R07.9 Chest pain, unspecified; M54.9 Dorsalgia, unspecified; F17.200 Nicotine dependence, unspecified, uncomplicated; I10 Essential (primary) hypertension; Z91.013 Allergy to seafood; Z90.710 Acquired absence of both cervix and uterus
CPT/HCPCS: 93005; 36415; 85025; 80053; 81001; 84484; 71046; 93010; J3490

== ENCOUNTER 2019-03-07 08:14 | Emergency (ER) | payer SELFPAY ==
[2019-03-07] MEDS ORDERED: TETRACAINE HCL 0.5% OPH SOLN 4 ML OD ONE (09:15)
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
[2019-03-07 10:38] VITALS: BP 137/95
== END 2019-03-07 10:21 | disposition home or self-care (01) ==
LOC: ER 08:14
DX: S05.8X1A Other injuries of right eye and orbit, initial encounter (principal); H57.11 Ocular pain, right eye; H53.8 Other visual disturbances; W51.XXXA Accidental striking against or bumped into by another person, initial encounter; I10 Essential (primary) hypertension
CPT/HCPCS: 99283; J3490

== ENCOUNTER 2019-06-06 11:33 | Emergency (ER) | payer OTHER ==
[2019-06-06 11:46] VITALS: BP 149/97
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
== END 2019-06-06 13:48 | disposition home or self-care (01) ==
LOC: ER 11:33
DX: J02.9 Acute pharyngitis, unspecified (principal); R19.7 Diarrhea, unspecified; R10.9 Unspecified abdominal pain; I10 Essential (primary) hypertension; F17.210 Nicotine dependence, cigarettes, uncomplicated
CPT/HCPCS: 87070; 87880; 99283

== ENCOUNTER 2019-09-19 14:19 | Emergency (ER) | payer OTHER ==
[2019-09-19 14:33] VITALS: BP 122/99
--- NOTE | 2019-09-19 14:55 | ER Document Report ---
HPI - HPI Patient complains to provider of: Allergic reaction Time Seen by Provider: 09/19/19 14:49 Onset: Just prior to arrival Pain Level: 5 Context: This 39-year-old female who called her doctor to get a mammogram for a lump in her left breast doctor did in fact order that and she is following up with that until resolution. However they put her on oxacillin in the meantime. She is having allergic reaction to the medicine. Associated Symptoms: None Exacerbated by: Denies Relieved by: Denies Recently seen / treated by doctor: Yes - REPRODUCTIVE Reproductive: DENIES: : Past Medical History - General Information source: Patient - Social History Smoking Status: Current Every Day Smoker Frequency of alcohol use: None Drug Abuse: None Family History: Reviewed & Not Pertinent - Medical History Medical History: Other - Past Medical History Cardiac Medical History: Reports: Hx Hypertension Renal/ Medical History: Denies: Hx Peritoneal Dialysis Musculoskeletal Medical History: Reports Hx Musculoskeletal Deformity, Reports Hx Musculoskeletal Trauma - Shoulder strain Past Surgical History: Reports: Hx Hysterectomy - PARTIAL - Immunizations Immunizations up to date: Yes Vertical Provider Document - CONSTITUTIONAL Agree With Documented VS: Yes - INFECTION CONTROL TRAVEL OUTSIDE OF THE [place] IN LAST 30 DAYS: No - HEENT HEENT: Atraumatic, Conjuctival Injection, Normocephalic, PERRLA - NECK Neck: Normal Inspection, Supple - RESPIRATORY Respiratory: Breath Sounds Normal, No Respiratory Distress - CARDIOVASCULAR Cardiovascular: Regular Rate, Regular Rhythm - GI/ABDOMEN Gastrointestinal: Abdomen Soft, Abdomen Non-Tender, Abdominal Guarding - REPRODUCTIVE Female Genitalia: Normal Inspection - BACK Back: Normal Inspection - MUSCULOSKELETAL/EXTREMETIES Musculoskeletal/Extremeties: MAEW - DERM Integumentary: Rash Notes: Patient has a generalized erythemic pruritic rash to her generalized torso and extremities after taking oxacillin. She recognized that she was allergic to it in the past and had forgotten. She has no difficulty breathing no difficulty swallowing no difficulty managing her own secretions. Course - Vital Signs Vital signs: Temp Pulse Resp BP Pulse Ox 98.9 F 99 18 122/99 H 98 09/19/19 14:31 09/19/19 14:31 09/19/19 14:31 09/19/19 14:31 09/19/19 14:31 Discharge - Discharge Clinical Impression: Acute allergic reaction Qualifiers: Encounter type: initial encounter Qualified Code(s): T78.40XA - Allergy, unspecified, initial encounter Disposition: HOME, SELF-CARE Instructions: Acute Allergic Reaction ([facility]) Prescriptions: Diphenhydramine HCl [Benadryl 25 mg Capsule] 25 mg PO Q6 PRN #25 capsule PRN Reason: Clindamycin HCl 300 mg PO Q12 #20 capsule Prednisone [Deltasone 20 mg Tablet] 3 tab PO DAILY 5 Days tablet Famotidine [Heartburn Prevention] 20 mg PO QAM #20 tablet Referrals: BARBARA WOOD MD [Primary Care Provider] - Follow up as needed
== END 2019-09-19 14:59 | disposition home or self-care (01) ==
LOC: ER 14:19
DX: R21 Rash and other nonspecific skin eruption (principal); T36.0X5A Adverse effect of penicillins, initial encounter; T78.40XA Allergy, unspecified, initial encounter; Y92.9 Unspecified place or not applicable; F17.200 Nicotine dependence, unspecified, uncomplicated; I10 Essential (primary) hypertension
CPT/HCPCS: 99283